=== PATIENT | female | born 1955 | race Caucasian/White ===

== ENCOUNTER 2021-06-19 15:41 | Outpatient (REF) | payer OTHER, SELFPAY ==
--- NOTE | ~2021-06-19 | MM_ITS ---
EXAMINATION: MM SCREENING DIGITAL BREAST TOMOSYNTHESIS, BILATERAL CLINICAL INFORMATION: Screening. Asymptomatic. The lifetime risk of breast cancer based on the Tyrer-Cuzick Model is 5%. COMPARISON: Mammography: 03/06/2020, 10/05/2018, 09/13/2017 TECHNIQUE: Digital breast tomosynthesis is performed in both the craniocaudal and mediolateral oblique views along with computer-aided detection (CAD). Synthesized 2D images are generated from the tomosynthesis. FINDINGS: There are scattered areas of fibroglandular density (ACR BI-RADS breast composition Category b). Parenchymal pattern is similar to prior studies. There is no developing density or interval mass or architectural abnormality. Grouped benign coarse calcifications posterior 3:00 left breast consistent with degenerating fibroadenoma again noted. There is a dermal lesion again seen overlying the posterior upper outer left breast, and dermal lesion overlying right axilla on MLO view. No significant changes. MM/MM tomosynthesis screening BI IMPRESSION: No mammographic evidence of malignancy. ASSESSMENT: BI-RADS 2: Benign RECOMMENDATION: Routine annual mammography screening. This patient's information was entered into a reminder system with a target due date for their next mammogram.
== END 2021-06-19 15:42 | disposition home or self-care (01) ==
LOC: HO.MAMMO 15:41
PROVIDERS: Visit Provider Nurse Practitioner
DX: Z12.31 Encounter for screening mammogram for malignant neoplasm of breast (principal)
CPT/HCPCS: 77063; 77067

== ENCOUNTER 2022-07-02 15:41 | Outpatient (REF) | payer OTHER, SELFPAY ==
--- NOTE | ~2022-07-02 | MM_ITS ---
EXAMINATION: MM SCREENING DIGITAL BREAST TOMOSYNTHESIS, BILATERAL CLINICAL INFORMATION: Screening. Asymptomatic. The lifetime risk of breast cancer based on the Tyrer-Cuzick Model is 4.6%. COMPARISON: Mammography: June 19, 2021 and studies dating back to July 15, 2015 TECHNIQUE: Digital breast tomosynthesis is performed in both the craniocaudal and mediolateral oblique views along with computer-aided detection (CAD). Synthesized 2D images are generated from the tomosynthesis. FINDINGS: There are scattered areas of fibroglandular density (ACR BI-RADS breast composition Category b). There are no new significant masses, abnormal calcifications, or other abnormalities. MM/MM tomosynthesis screening BI IMPRESSION: No significant changes from prior exam. ASSESSMENT: BI-RADS 1: Negative RECOMMENDATION: Routine annual mammography screening. This patient's information was entered into a reminder system with a target due date for their next mammogram.
== END 2022-07-02 15:42 | disposition home or self-care (01) ==
LOC: HO.MAMMO 15:41
PROVIDERS: Visit Provider Family Medicine
DX: Z12.31 Encounter for screening mammogram for malignant neoplasm of breast (principal)
CPT/HCPCS: 77063; 77067

== ENCOUNTER 2023-01-08 09:35 | Outpatient (REF) | payer OTHER, SELFPAY ==
--- NOTE | ~2023-01-08 | MM_ITS ---
EXAMINATION: BONE DENSITOMETRY CLINICAL INDICATION: Menopause. COMPARISON: This is the patient's baseline examination. TECHNIQUE: Using a SoundOut DXA System (software version: 13.1) manufactured by [employer], dual-energy x-ray absorptiometry was performed of the lumbar spine and right hip. The images are of good technical quality. Summary results are attached. FINDINGS: AP SPINE L1-L4: BMD 0.917 g/cm2, Z-score -0.4, T-score -2.2, osteopenia. RIGHT FEMUR, NECK: BMD 0.712 g/cm2, Z-score -0.7, T-score -2.3, osteopenia. RIGHT FEMUR, TOTAL: BMD 0.765 g/cm2, Z-score -0.5, T-score -1.9, osteopenia. IDENTIFIED RISK FACTORS: Early menopause, height loss, history of fracture (adult), osteoporosis, secondary osteoporosis. HISTORY OF FRACTURE: Wrist. MEDICATIONS: Calcium or multivitamin. Vitamin D, bisphosphonate. MM/XR DEXA axial skeleton IMPRESSION: 1. DIAGNOSIS: Osteopenia based on the lowest T-score value of -2.3 in the femoral neck applying World Health Organization criteria. 2. 10-YEAR FRACTURE RISK PREDICTION, FRAX: Not performed in this patient on estrogen or bone building treatments. 3. Treatment Recommendations: NOF guidelines recommend consideration for treatment in postmenopausal women and men age 50 and older presenting with the following: -A hip or vertebral (clinical or morphometric) fracture. -T-score less than or equal to -2.5 at the femoral neck or spine after appropriate evaluation to exclude secondary causes. -Low bone mass at the hip or spine and a 10-year fracture probability by FRAX of greater than or equal to 3% for hip fracture or greater than or equal to 20% for major osteoporotic fracture based on the [place] adapted WHO algorithm. 4. Other Recommendations: All treatment decisions require clinical judgment and consideration of individual patient factors, including patient preferences, comorbidities, previous drug use, risk factors not captured in the FRAX model (e.g. frailty, falls, vitamin D deficiency, increased bone turnover, interval significant decline in bone density) and possible under or overestimation of fracture risk by FRAX. Additional medical evaluation for secondary cause of low bone mineral density may be appropriate. FUTURE SCAN RECOMMENDATION: People with diagnosed cases of osteoporosis or at high risk for fracture should have regular bone mineral density tests. For patients eligible for Medicare, routine testing is allowed once every 2 years. The testing frequency can be increased to one year for patients who have rapidly progressing disease, those who are receiving or discontinuing medical therapy to restore bone mass, or have additional risk factors.
== END 2023-01-08 09:36 | disposition home or self-care (01) ==
LOC: HO.MAMMO 09:35
PROVIDERS: PCP Nurse Practitioner; Visit Provider Nurse Practitioner
DX: Z13.820 Encounter for screening for osteoporosis (principal); Z78.0 Asymptomatic menopausal state
CPT/HCPCS: 77080

== ENCOUNTER 2023-04-19 15:06 | Observation (INO) | payer OTHER, MEDICARE, SELFPAY ==
[2023-04-19] VITALS (7 sets, daily range): BP systolic 115–208; BP diastolic 59–93; PULSE 50–153; RESP 18–22; TEMP 36.5–36.9; O2SAT 99–100; BMI 22.2
--- NOTE | 2023-04-19 | ECG_ITS ---
Test Reason : Dysrhytmia Blood Pressure : / mmHG Vent. Rate : 153 BPM Atrial Rate : 156 BPM P-R Int : 000 ms QRS Dur : 086 ms QT Int : 320 ms P-R-T Axes : 000 -20 -78 degrees QTc Int : 510 ms Undetermined rhythm Lateral infarct , age undetermined Inferior-posterior infarct , age undetermined Abnormal ECG When compared with ECG of 19-APR-2023 15:12, Significant changes have occurred Referred By: Tania Cannon Electronically Signed By:LITZY NUNEZ
--- NOTE | 2023-04-19 15:07 | ECG_ITS ---
Test Reason : AFIB Blood Pressure : / mmHG Vent. Rate : 072 BPM Atrial Rate : 072 BPM P-R Int : 234 ms QRS Dur : 092 ms QT Int : 408 ms P-R-T Axes : 087 -10 069 degrees QTc Int : 446 ms Sinus rhythm with 1st degree A-V block Nonspecific ST and T wave abnormality Abnormal ECG When compared with ECG of 05-MAR-2019 12:19, [place] interval has increased Referred By: Generic ED Physician Electronically Signed By:LITZY NUNEZ
--- NOTE | 2023-04-19 15:38 | ED_ITS ---
HPI - General Adult General Chief complaint: Arrhythmia/Palpitations Stated complaint: a fib Time Seen by Provider: 04/19/23 20:53 Source: patient Mode of arrival: ambulatory Limitations: no limitations History of Present Illness HPI narrative: Patient comes to the emergency room complaining of palpitations. Patient states that she has an extensive history of atrial fibrillation and failed ablation x3 and multiple treatments including beta-blockers. Patient is currently on flecainide. Patient states that over last 2-3 weeks, she has gradually noticed that her palpitations have become more frequent. The reason she came today is because she had more episodes than usual and lasted longer than usual. Patient complaining of palpitations, no chest pain or shortness of breath. Patient states that she is very frustrated because she has this episodes at night, she has not been able to sleep. Any time that she gets up and starts walking now she has palpitations. Patient states that she usually takes flecainide 50 mg twice a day. Because she was frustrated with the symptoms, patient decided 2 days ago to increase her flecainide 100 mg b.i.d. patient states that despite increasing her dose of flecainide, she is still having symptoms (palpitations intensity and frequency) which actually got worse. Related Data Allergies Allergy/AdvReac Type Severity Reaction Status Date / Time dofetilide [From TIKOSYN] Allergy Unknown IRREGULAR Verified 04/19/23 15:37 HEART RATE lisinopril [LISINOPRIL] Allergy Unknown SWELLING Verified 04/19/23 15:37 penicillin G Allergy Unknown RESPIRATORY Unverified 04/04/20 16:02 DISTRESS penicillin V Allergy Unknown Unknown Verified 04/19/23 15:37 Penicillin Allergy Unknown Unknown Uncoded 04/19/23 15:37 Tikosyn Allergy Unknown Unknown Uncoded 04/19/23 15:37 Review of Systems 2 Review of Systems: Constitutional : No Weight loss, No Fever, No Chills, No Night Sweats, No Fatigue, No Malaise ENT/Mouth : No Hearing loss, No Ear Pain, No Nasal Congestion, No Sinus Pain, No Hoarseness, No sore throat, No Rhinorrhea, No Swallowing Difficulty Eyes: No Eye Pain, No Swelling, No Redness, No Foreign Body, No Discharge, No Vision Changes Cardiovascular : No Chest Pain, No SOB, No Dyspnea on Exertion, No Orthopnea, No Edema, complaining of frequent and more intense Palpitations Respiratory : No Cough, No Sputum, No Wheezing, No Smoke Exposure, No Dyspnea Gastrointestinal : No Nausea, No Vomiting, No Diarrhea, No Constipation, No abdominal Pain, No Hematochezia, No Melena Genitourinary : no irregular bleeding, No Dysuria, No Urinary Frequency, No Hematuria, No Urinary Incontinence, No Urgency, No Flank Pain, No Urinary Flow Changes, No Hesitancy Musculoskeletal : No joint pain, No Myalgias, No Joint Swelling Skin : No Skin Lesions, No rash Neuro : No Weakness, No Numbness, No Paresthesias, No Loss of Consciousness, No Dizziness, No Headache Psych : No Anxiety/Panic, No Depression, No SI/HI/AH/VH, No Social Issues, Heme/Lymph: No Bruising, No Bleeding,No Lymphadenopathy Endocrine : No Polyuria, No Polydipsia, No Temperature Intolerance [facility] Past Medical History Medical History (Updated 04/19/23 @ 23:42 by Tania Cannon MD) Hypothyroidism Atrial fibrillation Surgical History (Updated 04/19/23 @ 23:33 by Tania Cannon MD) History of cardiac radiofrequency ablation Social History Social History Alcohol intake: former Smoked in Last 30 Days: No Use of substances other than those prescribed or required for medical reasons: No Advance Directives: No Advance Directives Information Provided: No Physical Exam ED Vital Signs: Vital Signs - 24 hr 04/19/23 15:38 04/19/23 20:35 04/19/23 20:39 Temperature 97.7 F Pulse Rate 65 153 H 78 Respiratory Rate 18 18 Blood Pressure 191/62 H 208/78 H Pulse Oximetry 99 100 Oxygen Delivery Method Room Air Room Air 04/19/23 21:03 04/19/23 21:07 04/19/23 22:30 Temperature Pulse Rate 57 56 50 Respiratory Rate 18 18 18 Blood Pressure 131/59 L 115/93 H 143/67 H Pulse Oximetry 100 100 99 Oxygen Delivery Method Room Air Room Air Room Air BMI result Body Mass Index 22.2 Const Other: Appearance: Alert. Oriented X3. No acute distress. Eyes: Pupils equal, round and reactive to light. ENT: Pharynx normal. Neck: Normal inspection. Neck supple. No lymph nodes noted. No crepitus CVS: Heart rate regularly regular, heart rate between 150 and 160, Pulses normal. Normal S1 and S2 Respiratory: No respiratory distress. Breath sounds normal. No Wheezing. No rales Abdomen: Soft and nontender. No rigidity. No distention. Skin: Skin warm and dry. Normal skin color. Normal skin turgor. Extremities: No lower extremity edema. No Lacerations. No Rash Neuro: Oriented X 3. No motor deficit. No sensory deficit. Moving all extremities. No slurred speech. CN 2 through 12 grossly intact Psych: calm, cooperative, normal affect Course Course Course Narrative: This is an RME: Additional HPI, ROS, PE not included below will be deferred to primary provider. This is a 71-[id number]-[id number]-female, hx of a fib on eliquis, presenting to the ER with complaints of heart palpitations and dizziness x 4 days. Reporting anxious and hot/cold flashes. Currently a patient of [facility] - seen by Dr. Prince last wednesday. Pt states that she is also on Flecinide 50mg BID, states that she doubled her dosage to 100mg BID without full recommendations from her vegetable scullion - has not noticed any improvements. Plan: Labs, EKG Elevated troponin at 17.1 Repeat ordered from triage. 20:17 - pt brought back to main ER for further evaluation. Medications Administered Discontinued Medications Generic Name Dose Route Start Last Admin Trade Name Freq PRN Reason Stop Dose Admin Diltiazem HCl 20 mg 04/19/23 20:53 04/19/23 20:59 Diltiazem Hcl 50 Mg/10 Ml Vial IVPUSH 04/19/23 20:54 20 mg STAT STA Administration Medical Decision Making Medical Decision Making [facility] Narrative: -my interpretation of labs, normal hematology and chemistry, troponin slightly bumped at 17.1 and 22.7. Patient has no chest pain. -my interpretation of EKG 1: Atrial fibrillation with RVR, heart rate 153, QTC 510, no concern for STEMI -my interpretation of EKG 2: Sinus rhythm, heart rate 70, no ST segment depression or elevation, T-wave inversion in lead V1 V2, frequent PVCs -patient was given 20 mg of IV Cardizem, initial blood pressure 191/62, heart rate in the 150s to 160s. Patient's blood pressure improved to 128/76, heart rate between 50-65. Patient was ambulated around the emergency room, heart rate stayed between 50 and 60. -patient states she feels well. Patient is requesting to have her cardiac care transfer to [facility]. I discussed the patient with Dr. Bruce, who will see the patient in the morning. At this time, no more flecainide, patient to be given. -I discussed with Dr. Bruce admitting the patient versus sending her home. Patient id way needs very close follow-up. I discussed the options with the patient. Patient is concerned about all the symptoms she has been having lately, especially at night, increasing her flecainide without telling her vegetable scullion, starting Cardizem. Patient being admitted. -patient will have Cardiology consult in the morning. Patient discussed with Dr. Rubin Differential Diagnosis Differential Diagnoses: The differential diagnosis associated with the presentation includes (Atrial fibrillation, atrial flutter, SVT) Admission/Observation Consideration of admission/observation: Escalation of care including admission/observation considered Consult Healthcare Provider Management of the patient was discussed with: Hospitalist and Form Layer Lab Data MDM Lab Attestation statement: I reviewed the patient's lab results. 04/19/23 16:06 04/19/23 16:06 Labs: Lab Results 04/19/23 04/19/23 Range/Units 16:06 19:47 WBC 6.6 (4.8-10.8) X10*3/uL RBC 4.73 (4.20-5.50) X10*6/uL Hgb 15.2 (12.0-16.0) g/dl Hct 45.4 (37.0-47.0) % MCV 96.0 (80.0-98.0) fL MCH 32.1 (27.0-33.0) pg MCHC 33.5 (31.0-35.0) g/dl RDW 12.7 (11.0-16.0) % Plt Count 321 (160-400) X10*3/uL MPV 10.2 (9.4-12.3) fL Immature Gran % (Auto) 0.3 (0.0-0.4) % Neut % (Auto) 58.8 (45-73) % Lymph % (Auto) 26.3 (20-40) % Parmer % (Auto) 10.8 (2-11) % Eos % (Auto) 3.3 (0-4) % Baso % (Auto) 0.5 (0-2) % Lymph # (Auto) 1.7 (1.2-4.9) X10*3/uL Parmer # (Auto) 0.7 (0.1-1.2) X10*3/uL Eos # (Auto) 0.2 (0.0-0.4) X10*3/uL Baso # (Auto) 0.0 (0.0-0.2) X10*3/uL Abs Immat Gran (auto) 0.02 (0.00-0.03) X10*3/uL Absolute Neuts (auto) 3.9 (2.0-8.3) x10*3/uL Absolute Nucleated RBC 0.000 (0.0-0.012) X10*3/uL Nucleated RBC % (auto) 0.0 (0.0-0.2) /100WBC PT 13.7 H (11.1-13.3) SEC INR 1.1 (0.9-1.1) APTT 42.1 H (26.0-36.4) SEC Sodium 140 (135-145) mmol/L Potassium 4.3 (3.3-5.1) mmol/L Chloride 106 (96-108) mmol/L Carbon Dioxide 25 (22-29) mmol/L Anion Gap 13 (12-20) BUN 15 (9-16) mg/dL Creatinine 0.83 (0.5-1.4) mg/dL Estim Creat Clear Calc 58.3 Estimated GFR > 60 Random Glucose 91 (60-115) mg/dL Calcium 10.2 (8.4-10.2) mg/dL Magnesium 2.3 (1.6-2.6) mg/dL Total Bilirubin 0.4 (0.0-1.0) mg/dL Direct Bilirubin 0.1 (0.0-0.5) mg/dL AST 18 (5-31) U/L ALT 11 (0-31) U/L Alkaline Phosphatase 74 (39-117) U/L Troponin I High Sens 17.1 H 22.7 H (<3.5-17.0) ng/L Total Protein 8.3 H (6.5-8.0) g/dL Albumin 4.7 (3.5-5.0) g/dL TSH 2.59 (0.32-4.0) uIU/mL Independent Interpretation I performed an independent interpretation of an: EKG Independent Historian Clinical information obtained from an independent historian. History obtained from or confirmed by: Spouse (At bedside) Critical Care Time Critical Care Time Critical Care Time: Yes Total Critical Care Time: 60 Attestation: I have personally provided critical care time. Time includes review of lab data, radiology results, discussion with consultants, and monitoring for potential decompensation. Intervention performed as documented. Discharge Plan Discharge Clinical Impression: Atrial fibrillation with rapid ventricular response Patient Disposition: Admitted As Inpatient
[2023-04-19 16:11] LABS: MANUAL DIFF FLAG NO
[2023-04-19 16:17] LABS: Basophils Percent Auto 0.5 % (0-2); Eosinophils Absolute Auto 0.2 X10*3/uL (0.0-0.4); Eosinophils Percent Auto 3.3 % (0-4); Hematocrit 45.4 % (37.0-47.0); Hemoglobin 15.2 g/dl (12.0-16.0); Imm Gran Abs Auto 0.02 X10*3/uL (0.00-0.03); Imm Gran Pct Auto 0.3 % (0.0-0.4); Lymphocytes Absolute Auto 1.7 X10*3/uL (1.2-4.9); Lymphocytes Percent Auto 26.3 % (20-40); Mean Corpuscular HGB Conc 33.5 g/dl (31.0-35.0); Mean Corpuscular Hemoglobin 32.1 pg (27.0-33.0); Mean Platelet Volume 10.2 fL (9.4-12.3); Monocytes Absolute Auto 0.7 X10*3/uL (0.1-1.2); Monocytes Percent Auto 10.8 % (2-11); Neutrophils Absolute Auto 3.9 x10*3/uL (2.0-8.3); Neutrophils Percent Auto 58.8 % (45-73); Platelet Count 321 X10*3/uL (160-400); Red Blood Count 4.73 X10*6/uL (4.20-5.50); Red Cell Distribution Width 12.7 % (11.0-16.0); White Blood Count 6.6 X10*3/uL (4.8-10.8)
[2023-04-19 16:19] LABS: INTERNATIONAL NORM RATIO 1.1 (0.9-1.1); Prothrombin Time 13.7 SEC (11.1-13.3)
[2023-04-19 16:22] LABS: Partial Thromboplastin Time 42.1 SEC (26.0-36.4)
[2023-04-19 16:36] LABS: Alanine Aminotransferase 11 U/L (0-31); Albumin Level 4.7 g/dL (3.5-5.0); Alkaline Phosphatase 74 U/L (39-117); Anion Gap 13 (12-20); Aspartate Amino Transferase 18 U/L (5-31); Bilirubin Direct 0.1 mg/dL (0.0-0.5); Bilirubin Total 0.4 mg/dL (0.0-1.0); Blood Urea Nitrogen 15 mg/dL (9-16); Calcium 10.2 mg/dL (8.4-10.2); Carbon Dioxide 25 mmol/L (22-29); Chloride 106 mmol/L (96-108); Creatinine Clr Calc Pharmacy 58.3; Estimated Glomerular Filt Rate > 60; Glucose Random 91 mg/dL (60-115); Magnesium 2.3 mg/dL (1.6-2.6); Potassium 4.3 mmol/L (3.3-5.1); Sodium 140 mmol/L (135-145); Total Protein 8.3 g/dL (6.5-8.0)
[2023-04-19 16:38] LABS: Troponin-I High Sensitivity 17.1 ng/L (<3.5-17.0)
[2023-04-19 16:51] LABS: TSH reflex Free T4 2.59 uIU/mL (0.32-4.0)
[2023-04-19 20:14] LABS: Troponin-I High Sensitivity 22.7 ng/L (<3.5-17.0)
[2023-04-19] MEDS: dilTIAZem HCL 50 MG/10 ML VIAL 20 MG IVPUSH (20:59)
--- NOTE | 2023-04-19 21:03 | ECG_ITS ---
Test Reason : DYSRHYTHMIA Blood Pressure : / mmHG Vent. Rate : 070 BPM Atrial Rate : 060 BPM P-R Int : 160 ms QRS Dur : 084 ms QT Int : 424 ms P-R-T Axes : 075 036 083 degrees QTc Int : 457 ms Sinus rhythm with Premature supraventricular complexes and with occasional Premature ventricular complexes Possible Lateral infarct (cited on or before 19-APR-2023) ST & T wave abnormality, consider anterior ischemia Abnormal ECG When compared with ECG of 19-APR-2023 20:49, Previous ECG has undetermined rhythm, needs review Criteria for Inferior-posterior infarct are no longer Present Serial changes of evolving Lateral infarct Present Referred By: Jb Rubin Electronically Signed By:LITZY NUNEZ
--- NOTE | 2023-04-19 21:04 | PC.NURSE ---
dr. sanchez at bedside discussing pt care.
--- NOTE | 2023-04-19 22:29 | PC.NURSE ---
Trial ambulation with pt. Pt demonstrated steady gait, no acute distress. HR remained 48-62 during ambulation, pt asymptomatic. Returned to stretcher and VS obtained. notified.
--- NOTE | 2023-04-19 23:32 | PM.IMHP ---
History of Present Illness Date of Service: 04/19/23 Chief Complaint: Palpitations, dizziness A 67 years old lady with PMH of Afib on Eliquis, Hypothyroidism, HTN among others who presents to the hospital with dizziness and palpitations with HR in 150s. Reprting feeling anxious and SOB with associated weakness. denies any chest pain, LOC, blurred vision, N\V\D , change in bowel habit or urinary symptoms. She has been having symptoms in\out Afib for almost a month. 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 Heart rate controlled in ED with IV Cardizem. Admitted for observation and cardiology eval in the morning. Review of Systems Review of Systems: No fever, chills but reports weakness No chest pain but having palpitation exertional shortness of breath or coughing No abdominal pain, nausea or vomiting No urinary symptoms PMFSH Medical History Hypothyroidism Atrial fibrillation Surgical History History of cardiac radiofrequency ablation Social History Alcohol intake: former Smoked in Last 30 Days: No Use of substances other than those prescribed or required for medical reasons: No Advance Directives: No Advance Directives Information Provided: No Meds Allergies Allergy/AdvReac Type Severity Reaction Status Date / Time dofetilide [From TIKOSYN] Allergy Unknown IRREGULAR Verified 04/19/23 15:37 HEART RATE lisinopril [LISINOPRIL] Allergy Unknown SWELLING Verified 04/19/23 15:37 penicillin G Allergy Unknown RESPIRATORY Unverified 04/04/20 16:02 DISTRESS penicillin V Allergy Unknown Unknown Verified 04/19/23 15:37 Penicillin Allergy Unknown Unknown Uncoded 04/19/23 15:37 Tikosyn Allergy Unknown Unknown Uncoded 04/19/23 15:37 Home Medications Medication Instructions Recorded Confirmed Last Taken Type alendronate 70 mg tablet 70 mg PO QWEEK 04/20/23 04/20/23 04/14/23 History amlodipine 2.5 mg tablet 2.5 mg PO DAILY 04/20/23 04/20/23 Unknown History amlodipine 5 mg tablet 5 mg PO DAILY 04/20/23 04/20/23 Unknown History apixaban 5 mg tablet (Eliquis) 5 mg PO BID 04/20/23 04/20/23 Unknown History doxepin 10 mg capsule 10 mg PO BEDTIME 04/20/23 04/20/23 Unknown History gabapentin 100 mg capsule 100 mg PO TID 04/20/23 04/20/23 Unknown History hydrochlorothiazide 25 mg tablet 25 mg PO DAILY 04/20/23 04/20/23 Unknown History levothyroxine 125 mcg tablet 125 mcg PO DAILY 04/20/23 04/20/23 Unknown History spironolactone 25 mg tablet 25 mg PO DAILY 04/20/23 04/20/23 Unknown History Physical Exam Vital Signs and Narrative: Vital Signs: Last Vital Signs Temp 97.7 F 04/19/23 15:38 Pulse 50 04/19/23 22:30 Resp 18 04/19/23 22:30 BP 143/67 H 04/19/23 22:30 Pulse Ox 99 04/19/23 22:30 O2 Del Method Room Air 04/19/23 22:30 BMI result Body Mass Index 22.2 Const: Other: Constitutional : Awake, interactive, not in distress Neck : Normal inspection, Supple Cardiovascular : regular, no JVP, no lower extremity edema Respiratory : good bilateral air entry, no crackles Gastrointestinal: soft, lax, Normal bowel sounds, Non tender Skin : Warm, Dry Neurological : Alert & oriented x3, No focal deficit Results Labs 04/19/23 16:06 04/19/23 16:06 Labs: Laboratory Results - last 24 hr 04/19/23 16:06 MCV 96.0 MCH 32.1 MCHC 33.5 RDW 12.7 Plt Count 321 MPV 10.2 Immature Gran % (Auto) 0.3 Neut % (Auto) 58.8 Lymph % (Auto) 26.3 [place] % (Auto) 10.8 Eos % (Auto) 3.3 Baso % (Auto) 0.5 Lymph # (Auto) 1.7 [place] # (Auto) 0.7 Eos # (Auto) 0.2 Baso # (Auto) 0.0 Abs Immat Gran (auto) 0.02 Absolute Neuts (auto) 3.9 Absolute Nucleated RBC 0.000 Nucleated RBC % (auto) 0.0 PT 13.7 H INR 1.1 APTT 42.1 H Anion Gap 13 Estim Creat Clear Calc 58.3 Estimated GFR > 60 Random Glucose 91 Calcium 10.2 Magnesium 2.3 Total Bilirubin 0.4 Direct Bilirubin 0.1 AST 18 ALT 11 Alkaline Phosphatase 74 Total Protein 8.3 H Albumin 4.7 TSH 2.59 Assessment and Plan (1) Atrial fibrillation with rapid ventricular response: Status: Acute Plan A 67 years old lady with PMH of Afib on Eliquis, Hypothyroidism, HTN among others who presents to the hospital with dizziness and palpitations with HR in 150s. Afib w RvR converted back to sinus with IV Cardizem, rate down to 50-60s Patient doesnt want to continue with Flecanide Keep on Tele PRN Cardizem cardiology eval for medication advice , rec starting Cardizem 120CD Hypothyroidism Continue Levothyroxine normal TSH Pending Med rec DVT PPx Eliquis Time Spent With Patient Time: Total time managing care of this patient today ____ minutes. Quality Stroke Does the patient have a stroke diagnosis?: No VTE Prior VTE?: No VTE Risk Level:: Medical - moderate - high VTE Device Contraindication: Treatment Not Indicated VTE Drug Contraindication: N/A - Med Ordered
[2023-04-20] MEDS: 0.9 % Sodium Chloride Flush 3 ML SYRINGE IVFLUSH ×2 (00:19→09:04)
[2023-04-20 01:03] VITALS: BP 148/64; PULSE 136; RESP 18; O2SAT 100
[2023-04-20] MEDS: dilTIAZem HCL 30 MG TABLET PO ×2 (01:03→02:50)
--- NOTE | 2023-04-20 01:04 | PC.NURSE ---
pt endorsing two episodes of chest palpitations. pt heart rate 135, and then goes back down to 56-68 bpm. pt denies chest pain. provider aware at this time.
[2023-04-20 01:18] VITALS: BP 140/72; PULSE 54; RESP 16; O2SAT 99
--- NOTE | 2023-04-20 02:35 | PC.NURSE ---
pt reporting increase palpitations every 5 minutes, reports feeling restless from the feeling and unable to sleep. Dr. Iain lowery.
[2023-04-20 02:49] VITALS: BP 148/55; PULSE 64; RESP 18; O2SAT 99
[2023-04-20] MEDS: LORazepam 0.5 MG TABLET 0.25 MG PO (02:50)
[2023-04-20 02:58] VITALS: BP 126/59; PULSE 53; RESP 18; O2SAT 100
--- NOTE | 2023-04-20 03:01 | PC.NURSE ---
attempted to give report to [facility]. Nurse on [facility] will call this RN back.
--- NOTE | 2023-04-20 03:42 | PC.NURSE ---
report given to [facility].
[2023-04-20 04:09] VITALS: BMI 22.0
[2023-04-20] MEDS: Levothyroxine Sodium 125 MCG TABLET PO (05:09)
[2023-04-20 07:29] VITALS: BP 122/58; PULSE 52; RESP 20; TEMP 36.2; O2SAT 100
--- NOTE | 2023-04-20 08:29 | PHA.MEDREC ---
Pharmacy Consult ? Medication Reconciliation Pharmacy has completed the medication reconciliation. Pharmacy was reviewing med rec done by nursing overnight and noticed some discrepancies against pharmacy claim history. RN states she spoke to patient as source so I decided to clarify with patient thinking she takes medications differently than prescribed. Patient was able to list medications without being lead an clarified that RN had incorrectly timed one of the 2 amlodipine doses she takes, put her gabapentin as tid instead of bedtime, and left out flecainide even though patient has been consistently filling this medication as per her claim history. Patient home med list updated and Dr Dey made aware of changes.
--- NOTE | 2023-04-20 08:34 | MHC.CM.PN ---
CM met with Patient at bedside and addressed SHAFFER with her, providing Patient with the original and placing a copy on the chart. 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 Home/self care is the goal and CM has initiated and will follow for dc planning. PCP is Dr. Kathia Brennan.
[2023-04-20] MEDS: dilTIAZem HCL CD 120 MG CAP.ER.DEG PO (09:04)
[2023-04-20] MEDS: Apixaban 5 MG TABLET PO (09:04)
--- NOTE | 2023-04-20 09:31 | PM.CNCAR ---
History of Present Illness History of Present Illness Date of Service: 04/20/23 Chief complaint: Afib w RvR Narrative: This is a cardiology consultation regarding atrial fibrillation. Patient currently goes to [facility] and she would like to switch. She states that she has had atrial fibrillation for more than 10 years. Has had multiple ablation, about 3 but this was also more than 10 years ago. Nothing recently. She states that she was free of atrial fibrillation for a long time and has been on flecainide. More recently in the last few months, she has been having recurrent episodes of palpitations from atrial fibrillation. She was on flecainide 50 mg b.i.d. per for the last few days she increased to 100 mg b.i.d. by herself. She was also on metoprolol in the past but she also has resting sinus bradycardia and hence apparently that was stopped a while back. Otherwise because of palpitations she presented to the ER. She got diltiazem IV and then converted to sinus rhythm and that she was admitted for further care. Currently, she feels fine. She does not have any chest pain or any other cardiac symptoms. No history of any coronary artery disease or myocardial infarction or cardiomyopathy. No history of alcohol excess. Review of Systems Review of Systems: Yes all other systems are reviewed and are negative Constitutional: Constitutional: Reports as per HPI and Reports no additional constitutional complaints Eyes: Eyes: Reports as per HPI and Denies no additional eye complaints ENT: Denies system reviewed and no additional complaints, except as documented and Reports as per HPI Cardiovascular: Cardiovascular: Reports as per HPI, Reports no additional cardiovascular complaints, Denies acrocyanosis, Denies cool extremities, Denies chest pain, Denies leg edema, Denies lightheadedness, Reports palpitations and Denies dyspnea Respiratory: Respiratory: Reports as per HPI, Denies no additional respiratory complaints and Denies dyspnea Gastrointestinal: Gastrointestinal: Reports as per HPI and Denies no additional gastrointestinal complaints Genitourinary: Genitourinary: Reports as per HPI Musculoskeletal: Musculoskeletal: Reports no additional musculoskeletal complaints and Reports as per HPI Integumentary/Breasts: Skin/Breast: Reports system reviewed and no additional complaints, except as docu Neurologic: Reports system reviewed and no additional complaints, except as documented and Reports as per HPI Psychiatric: Psychiatric: Reports no additional psychiatric complaints and Reports as per HPI Endocrine: Endocrine: Reports no additional endocrine complaints, Reports as per HPI and Reports palpitations Hematologic/Lymphatic: Hematologic/Lymphatic: Reports no additional hematologic/lymphatic complaints and Reports as per HPI Allergic/Immunologic: Allergic/Immunologic: Reports no additional allergic/immunologic complaints and Reports as per HPI PMFSH Past Medical History Medical History Hypothyroidism Atrial fibrillation Family History Pertinent family history: No significant family history of cardiovascular or other major issues per patient. Surgical History Surgical History History of cardiac radiofrequency ablation Social History Social History Household Members: Significant Other Housing: House Do you presently have visiting nurse or other home services: No Alcohol intake: former Patient Tobacco Use Status: Never used Tobacco service: No Meds Allergies Allergy/AdvReac Type Severity Reaction Status Date / Time dofetilide [From TIKOSYN] Allergy Unknown IRREGULAR Verified 04/19/23 15:37 HEART RATE lisinopril [LISINOPRIL] Allergy Unknown SWELLING Verified 04/19/23 15:37 penicillin G Allergy Unknown RESPIRATORY Unverified 04/04/20 16:02 DISTRESS penicillin V Allergy Unknown Unknown Verified 04/19/23 15:37 Penicillin Allergy Unknown Unknown Uncoded 04/19/23 15:37 Tikosyn Allergy Unknown Unknown Uncoded 04/19/23 15:37 Active Medications: Current Medications Apixaban (Apixaban 5 Mg Tablet) 5 mg PO BID [facility] Last Admin: 04/20/23 09:04 Dose: 5 mg Diltiazem HCl (Diltiazem Hcl Cd 120 Mg Cap.Er.Deg) 120 mg PO DAILY [facility]; Protocol Last Admin: 04/20/23 09:04 Dose: 120 mg Levothyroxine Sodium (Levothyroxine Sodium 125 Mcg Tablet) 125 mcg PO DAILY@0600 [facility] Last Admin: 04/20/23 05:09 Dose: 125 mcg Sodium Chloride (0.9 % Sodium Chloride Flush 3 Ml Syringe) 3 ml IVFLUSH QSHIFT [facility] Last Admin: 04/20/23 09:04 Dose: 3 ml Home Medications Medication Instructions Recorded Confirmed Last Taken Type alendronate 70 mg tablet 70 mg PO WE 04/20/23 04/20/23 04/14/23 History amlodipine 2.5 mg tablet 2.5 mg PO BEDTIME 04/20/23 04/20/23 04/18/23 History amlodipine 5 mg tablet 5 mg PO DAILY 04/20/23 04/20/23 04/19/23 History apixaban 5 mg tablet (Eliquis) 5 mg PO BID 04/20/23 04/20/23 04/19/23 History doxepin 10 mg capsule 10 mg PO BEDTIME 04/20/23 04/20/23 04/18/23 History flecainide 50 mg tablet 50 mg PO BID 04/20/23 04/20/23 04/19/23 History gabapentin 100 mg capsule 300 mg PO BEDTIME 04/20/23 04/20/23 04/18/23 History hydrochlorothiazide 25 mg tablet 25 mg PO DAILY 04/20/23 04/20/23 04/19/23 History levothyroxine 125 mcg tablet 125 mcg PO DAILY@0600 04/20/23 04/20/23 04/19/23 History spironolactone 25 mg tablet 25 mg PO DAILY 04/20/23 04/20/23 04/19/23 History Physical Exam Vital Signs: Vital Signs: Last Vital Signs Temp 97.1 F 04/20/23 07:29 Pulse 52 04/20/23 07:29 Resp 20 04/20/23 07:29 BP 122/58 L 04/20/23 07:29 Pulse Ox 100 04/20/23 07:29 O2 Del Method Room Air 04/20/23 07:29 BMI result Body Mass Index 22.0 Const: General: comfortable and no acute distress Orientation/consciousness: patient oriented x3 HEENT: Other: Unremarkable Head: Yes normal to inspection Neck: Neck: Yes normal visual inspection Chest: Chest palpation & inspection: normal inspection of the chest Resp: Auscultation: clear to auscultation bilaterally Cardio: Palpation: normal PMI Heart sounds: S1 normal heart sound present, S2 normal heart sound present, no gallops, no murmurs and no rubs GI: Palpation (GI): Soft to palpation Back/Spine/Pelvis: Other: unremarkable Skin: General skin exam: no rashes or lesions noted Neuro: General: patient oriented x3 Extrem: General: Yes normal to inspection Psych: Mental Status: mental status grossly normal Objective Labs and Meds 04/19/23 16:06 04/19/23 16:06 Lab results: Laboratory Results - last 24 hr 04/19/23 04/19/23 16:06 19:47 WBC 6.6 RBC 4.73 Hgb 15.2 Hct 45.4 MCV 96.0 MCH 32.1 MCHC 33.5 RDW 12.7 Plt Count 321 MPV 10.2 Immature Gran % (Auto) 0.3 Neut % (Auto) 58.8 Lymph % (Auto) 26.3 [place] % (Auto) 10.8 Eos % (Auto) 3.3 Baso % (Auto) 0.5 Lymph # (Auto) 1.7 [place] # (Auto) 0.7 Eos # (Auto) 0.2 Baso # (Auto) 0.0 Abs Immat Gran (auto) 0.02 Absolute Neuts (auto) 3.9 Absolute Nucleated RBC 0.000 Nucleated RBC % (auto) 0.0 PT 13.7 H INR 1.1 APTT 42.1 H Sodium 140 Potassium 4.3 Chloride 106 Carbon Dioxide 25 Anion Gap 13 BUN 15 Creatinine 0.83 Estim Creat Clear Calc 58.3 Estimated GFR > 60 Random Glucose 91 Calcium 10.2 Magnesium 2.3 Total Bilirubin 0.4 Direct Bilirubin 0.1 AST 18 ALT 11 Alkaline Phosphatase 74 Troponin I High Sens 17.1 H 22.7 H Total Protein 8.3 H Albumin 4.7 TSH 2.59 ECG Interpretation: EKG is reviewed. While in sinus rhythm, rate 70/Min. PVCs. There is downsloping STs with T inversion in the anterior leads but other leads also shows some degree of ST sagging. While in atrial fibrillation, rate was 153/Min and the ST segments changes much more prominent. Assessment and Plan (1) Atrial fibrillation with rapid ventricular response: Status: Acute (2) Sinus bradycardia: Status: Acute Plan Recurrent atrial fibrillation rapid rate and history of multiple ablations. On telemetry, she has sinus bradycardia in the 50s. Clinically absolutely no symptoms. We can just keep her on flecainide 50 mg b.i.d. but add metoprolol back to her regimen at 25 mg b.i.d.. If she still gets recurrent arrhythmias, then possibly switched to Multaq or consider another ablation. Will need to get records from her prior senior genetic counselor as she would like to switch. May need coronary CTA to assess for any CAD if there is no ischemic workup in the past. Time Spent With Patient Time: Total time managing care of this patient today ____ minutes. Procedures Date of Service Date of Service: 04/20/23
--- NOTE | 2023-04-20 10:32 | MHC.CM.PN ---
Per ROUNDS discussion, Patient will be medically cleared for dc to home today, self care.
--- NOTE | 2023-04-20 11:14 | P.DS_ITS ---
DS: Providers Provider Date of Service: 04/20/23 Date of admission: 04/19/23 23:29 Primary care physician: Kathia Brennan NP Consults: 04/19/23 23:30 Consult to Cardiology Routine Consulting Provider: [facility] Reason for consultation: Afib w RvR, medication advice, for eval and rec. DS: Diagnosis Discharge Diagnosis (1) Atrial fibrillation with rapid ventricular response: Status: Acute (2) Sinus bradycardia: Status: Acute DS: Summary Hospital Course Hospital Course: History of presenting illness: Date of Service: 04/19/23 Chief Complaint: Palpitations, dizziness A 67 years old lady with PMH of Afib on Eliquis, Hypothyroidism, HTN among others who presents to the hospital with dizziness and palpitations with HR in 150s. Reprting feeling anxious and SOB with associated weakness. denies any chest pain, LOC, blurred vision, N\V\D , change in bowel habit or urinary symptoms. She has been having symptoms in\out Afib for almost a month. 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 Heart rate controlled in ED with IV Cardizem. Admitted for observation and cardiology eval in the morning. Hospital course: Atrial fibrillation with RVR 67 years old lady with PMH of Afib on Eliquis, status post multiple ablation done 10 years ago on flecainide, Hypothyroidism, HTN among others who presents to the hospital with dizziness and palpitations with HR in 150s. Patient treated in the emergency room with IV Cardizem and converted to sinus bradycardia patient admitted for close monitoring and further testing, patient seen by greenskeeper laborer since patient remains in sinus bradycardia he recommend to continue flecainide 50 mg twice daily and added metoprolol for better heart rate control, patient recently had an echocardiogram few weeks ago that was reported as normal to patient,today noted to have normal electrolytes and TSH and has been continued on all home medications, continue Eliquis. Time Spent with Patient Time attestation: Total time managing care of this patient today ____ minutes. Discharge coordination time: Greater than 30 minutes Quality: Safe Use of Opioids Does Pt have an Active Cancer Diagnosis on the Problem List?: No Quality: Stroke Does the patient have a stroke diagnosis?: No Physical Exam Vital Signs: Vital Signs: Last Vital Signs Temp 97.1 F 04/20/23 07:29 Pulse 52 04/20/23 07:29 Resp 20 04/20/23 07:29 BP 122/58 L 04/20/23 07:29 Pulse Ox 100 04/20/23 07:29 O2 Del Method Room Air 04/20/23 07:29 BMI result Body Mass Index 22.0 Const: Other: General awake alert x3, sitting comfortably in no acute distress. Neck supple no JVD. CVS regular rate rhythm, sinus bradycardia Respiratory lungs clear to auscultation, no respiratory distress, no wheeze, no rhonchi. Gastrointestinal abdomen soft, non tender, bowel sounds audible, no guarding , no rigidity. Extremities no edema. Neuro nonfocal , moving all 4 extremity, speech clear. Skin no rash Psych appropriate affect DS: Data Data Completed and Pending Labs on day of discharge: Laboratory Results - last 24 hr 04/19/23 04/19/23 16:06 19:47 WBC 6.6 RBC 4.73 Hgb 15.2 Hct 45.4 MCV 96.0 MCH 32.1 MCHC 33.5 RDW 12.7 Plt Count 321 MPV 10.2 Immature Gran % (Auto) 0.3 Neut % (Auto) 58.8 Lymph % (Auto) 26.3 [place] % (Auto) 10.8 Eos % (Auto) 3.3 Baso % (Auto) 0.5 Lymph # (Auto) 1.7 [place] # (Auto) 0.7 Eos # (Auto) 0.2 Baso # (Auto) 0.0 Abs Immat Gran (auto) 0.02 Absolute Neuts (auto) 3.9 Absolute Nucleated RBC 0.000 Nucleated RBC % (auto) 0.0 PT 13.7 H INR 1.1 APTT 42.1 H Sodium 140 Potassium 4.3 Chloride 106 Carbon Dioxide 25 Anion Gap 13 BUN 15 Creatinine 0.83 Estim Creat Clear Calc 58.3 Estimated GFR > 60 Random Glucose 91 Calcium 10.2 Magnesium 2.3 Total Bilirubin 0.4 Direct Bilirubin 0.1 AST 18 ALT 11 Alkaline Phosphatase 74 Troponin I High Sens 17.1 H 22.7 H Total Protein 8.3 H Albumin 4.7 TSH 2.59 Discharge Plan Discharge Patient Disposition: Home, Self-Care Referrals: Kathia Brennan NP [Primary Care Provider] - 1 Week Discharge Medications: New metoprolol tartrate 25 mg tablet 25 mg PO BID Qty: 60 0RF Continued alendronate 70 mg tablet 70 mg PO WE amlodipine 2.5 mg tablet 2.5 mg PO BEDTIME amlodipine 5 mg tablet 5 mg PO DAILY doxepin 10 mg capsule 10 mg PO BEDTIME spironolactone 25 mg tablet 25 mg PO DAILY levothyroxine 125 mcg tablet 125 mcg PO DAILY@0600 hydrochlorothiazide 25 mg tablet 25 mg PO DAILY gabapentin 100 mg capsule 300 mg PO BEDTIME Eliquis 5 mg tablet 5 mg PO BID flecainide 50 mg tablet 50 mg PO BID Discharge Orders: Discharge Order (Routine); Ordered 04/20/23 Ordered By: Ca Dey Diet: Low fat, low cholesterol Activity on Discharge: As tolerated Stand Alone Forms: Patient Portal Discharge page Care Plan Goals: Atrial fibrillation with rapid ventricular response resolved patient converted to sinus bradycardia Continue flecainide 50 mg 1 tablet twice daily, metoprolol 25 mg 1 tablet twice daily added Recommend to continue all home medication Health Concerns: Continue all home medications as before Plan of Treatment: Outpatient follow-up with greenskeeper laborer Dr. Bruce, call for appointment Assessment: As above
[2023-04-20 11:48] VITALS: BP 133/62; PULSE 53; RESP 18; TEMP 36.6; O2SAT 97
== END 2023-04-20 12:29 | disposition home or self-care (01) ==
LOC: HO.ED 23:42 → HO.EDOVER 04-20 00:18 → HO.IMC 04-20 01:59
PROVIDERS: Physician Assistant Medical; Admitting Provider Student in an Organized Health Care Education/Training Program; Emergency Provider Emergency Medicine; PCP Nurse Practitioner; Visit Provider Hospitalist
DX: I48.91 Unspecified atrial fibrillation (principal); R00.1 Bradycardia, unspecified; R00.2 Palpitations; R94.31 Abnormal electrocardiogram [ECG] [EKG]; I10 Essential (primary) hypertension; E03.9 Hypothyroidism, unspecified; R42 Dizziness and giddiness; Z79.01 Long term (current) use of anticoagulants
CPT/HCPCS: 36415; 80048; 80076; 83735; 84443; 84484; 85025; 85610; 85730; 93005; 96374; 99222; 99285

== ENCOUNTER → 2023-04-19 23:29 | Outpatient (BNV) | payer OTHER, SELFPAY | PROVIDERS: Admitting Provider Student in an Organized Health Care Education/Training Program; Emergency Provider Emergency Medicine; PCP Nurse Practitioner; Visit Provider Internal Medicine | DX: I48.91 Unspecified atrial fibrillation (principal); R00.1 Bradycardia, unspecified | CPT/HCPCS: 99223 ==

== ENCOUNTER → 2023-04-19 23:29 | Outpatient (BNV) | payer OTHER, SELFPAY | PROVIDERS: Admitting Provider Student in an Organized Health Care Education/Training Program; Emergency Provider Emergency Medicine; PCP Nurse Practitioner; Visit Provider Student in an Organized Health Care Education/Training Program | DX: I48.91 Unspecified atrial fibrillation (principal); R00.1 Bradycardia, unspecified | CPT/HCPCS: 99222; 99239 ==

== ENCOUNTER → 2023-04-23 14:03 | Outpatient (BNVA) | payer OTHER, SELFPAY | PROVIDERS: PCP Nurse Practitioner; Visit Provider Nurse Practitioner ==

== ENCOUNTER → 2023-04-27 14:59 | Outpatient (REF) | payer OTHER, SELFPAY ==
--- NOTE | 2023-04-27 15:01 | HM_ITS ---
* Total monitoring time about 3 days. * Underlying rhythm is sinus. Average ventricular rate 42/Min. Range 29 to 67/Min. About 80% the time, rate less than 60/Min. * Pauses noted. Longest 2.9 seconds during sleep hours. No significant daytime pauses. No significant heart blocks. * Rare PACs and PVCs with low burden. * No atrial fibrillation or flutter. * Palpitations in diary correlates with sinus bradycardia. MTDD
== END ==
LOC: HO.CARD 14:59
PROVIDERS: PCP Nurse Practitioner; Visit Provider Internal Medicine
DX: I48.91 Unspecified atrial fibrillation (principal)
CPT/HCPCS: 93242

== ENCOUNTER → 2023-04-27 15:01 | Outpatient (BNV) | payer OTHER, SELFPAY | PROVIDERS: PCP Nurse Practitioner; Visit Provider Internal Medicine | DX: I49.1 Atrial premature depolarization (principal) | CPT/HCPCS: 93244 ==

== ENCOUNTER 2023-05-17 15:14 | Outpatient (AMB) | payer OTHER, SELFPAY ==
--- NOTE | 2023-05-17 15:18 | A.OFFVIS_ITS ---
Intake Vital Signs 05/17/23 15:19 Height 5 ft 5 in Weight 138 lb 14.259 oz BMI 23.1 BP 134/80 Blood Pressure Location Lt brachial Position Sitting Pulse 49 L Intake Visit Reasons: follow up after testing Intake Note: follow up testing Financial Services Manager Required: No Accompanied by: Self / Same As Patient Allergies dofetilide [From TIKOSYN] Allergy (Unknown, Verified 05/17/23 15:20) IRREGULAR HEART RATE lisinopril [LISINOPRIL] Allergy (Unknown, Verified 05/17/23 15:20) SWELLING penicillin G Allergy (Unknown, Verified 05/17/23 15:20) RESPIRATORY DISTRESS penicillin V Allergy (Unknown, Verified 05/17/23 15:20) Unknown Penicillin Allergy (Unknown, Uncoded 05/17/23 15:20) Unknown Tikosyn Allergy (Unknown, Uncoded 05/17/23 15:20) Unknown Medication List - Last Reconciled 05/17/23 by Cedric Bruce MD alendronate 70 mg PO WE amlodipine 2.5 mg PO BEDTIME amlodipine 5 mg PO DAILY apixaban (Eliquis) 5 mg PO BID doxepin 10 mg PO BEDTIME flecainide 50 mg PO BID gabapentin 300 mg PO BEDTIME hydrochlorothiazide 25 mg PO DAILY levothyroxine 125 mcg PO DAILY@0600 metoprolol tartrate 12.5 mg PO BID metronidazole 500 mg PO BID spironolactone 25 mg PO DAILY HPI HPI Comments History of Present Illness Details Lupe is here for follow-up regarding atrial fibrillation. Previously seeing [facility] but would like to switch her care to us. She has a history of 3 atrial fibrillation ablation. Around 10 years ago. She was apparently free of atrial fibrillation for many years but more recently started having episodes of palpitations from recurrent atrial fibrillation. She was trying to self adjust the dose of metoprolol with some relief. Eventually, she did get admitted to [place] where she was in atrial fibrillation rapid rate. Then given IV Cardizem and converted to sinus rhythm. She was able to get discharged. Outpatient Holter following discharge shows significant sinus bradycardia but no recurrent atrial fibrillation. She is on a small dose of maintenance flecainide/metoprolol. Generally feeling okay. No other cardiac symptoms. Palpitations seem improved. [facility] Medical History (Updated 05/17/23 @ 15:41 by Cedric Bruce MD) Paroxysmal atrial fibrillation Hypothyroidism Atrial fibrillation Surgical History History of cardiac radiofrequency ablation Family History (Updated 05/17/23 @ 15:30 by Cedric Bruce MD) Father No problems noted. Mother No problems noted. Social History Household Members: Significant Other Housing: House Do you presently have visiting nurse or other home services: No Alcohol intake: former Patient Tobacco Use Status: Never used Tobacco service: No Review of Systems Const All systems reviewed & are unremarkable except as noted in HPI and below Reports as per HPI and Reports no additional complaints Eyes Reports as per HPI and Denies no additional complaints ENT Denies no additional complaints and Reports as per HPI Card Reports as per HPI, Reports no additional complaints, Denies acrocyanosis, Denies chest pain, Denies leg edema, Denies lightheadedness, Denies palpitations and Denies dyspnea Resp Reports as per HPI, Denies no additional complaints and Denies dyspnea GI Reports as per HPI and Denies no additional complaints Reports as per HPI Musc Reports no additional complaints and Reports as per HPI Skin/Breast Reports system reviewed and no additional complaints, except as documented Neuro Reports no additional complaints and Reports as per HPI Psych Reports no additional complaints and Reports as per HPI Endo Reports no additional complaints, Reports as per HPI and Denies palpitations Toño/Lymph Reports no additional complaints and Reports as per HPI Aller/Immun Reports no additional complaints and Reports as per HPI Physical Exam Vital Signs: Last Vital Signs Pulse 49 L 05/17/23 15:19 BP 134/80 05/17/23 15:19 BMI result Body Mass Index 23.1 Const General: comfortable and no acute distress Orientation/consciousness: patient oriented x3 HEENT Other: Unremarkable Head: Yes normal to inspection Neck Neck: Yes normal visual inspection Chest Chest palpation & inspection: normal inspection of the chest Resp Auscultation: clear to auscultation bilaterally Cardio Palpation: normal PMI Heart sounds: S1 normal heart sound present, S2 normal heart sound present, no gallops, no murmurs and no rubs GI Palpation (GI): Soft to palpation Back/Spine/Pelvis Other: unremarkable Skin General skin exam: no rashes or lesions noted Neuro General: patient oriented x3 Extrem General: Yes normal to inspection Psych Mental Status: mental status grossly normal Office Procedures EKG Details: EKG shows sinus bradycardia at 49/Min; RI prolongation to 254 millisecond; incomplete right bundle-branch block type pattern; [place] [id number]-[id number], Complete Assessment & Plan Assessment & Plan (1) Paroxysmal atrial fibrillation: Code(s): I48.0 - Paroxysmal atrial fibrillation (2) Sinus bradycardia: Code(s): R00.1 - Bradycardia, unspecified (3) Encounter for monitoring anti-arrhythmic therapy: Code(s): Z51.81 - Encounter for therapeutic drug level monitoring; Z79.899 - Other intermediate school teacher (current) drug therapy Plan In the recent Holter, underlying rhythm is sinus with an average rate of 42/Min. Range is 29-67/Min. Overall, runs quite bradycardic. Sleep time pauses, longest 2.9 seconds but nothing significant during the daytime. No recurrent atrial fibrillation or flutter. EKG from 19 of April shows atrial fibrillation at a rate of 153/Min; cannot exclude old inferior posterior infarct with ST-T changes, but findings can also be from conduction system disease. Echocardiogram from 03/2023 with LVEF of 65-70%, no wall motion abnormality, [id number] aortic regurgitation. Left atrial size reported to be normal. Overall, recurrent atrial fibrillation in spite of multiple prior ablations. She remains on a small dose of flecainide/metoprolol. May keep it on for now. Will refer to Dr. Lombardo who did the initial ablations, for consideration of pacemaker. Once that is completed, we can hopefully maintain higher doses of medications as needed or consider yet another ablation. With regard to the EKG findings, patient states she had a stress test last year we can get those results. Clinically, she does not have any symptoms of obstructive CAD. Coding Level of Care Code Est Pt Level 4 (75216) Diagnoses Paroxysmal atrial fibrillation I48.0 Sinus bradycardia R00.1 Encounter for monitoring anti-arrhythmic therapy Z51.81; Z79.899 CPT Codes EKG - CPT: 46593-Hgjrsdhtbtbtlctbz, Complete ([id number])
[2023-05-17 15:19] VITALS: BP 134/80; PULSE 49; BMI 23.1
== END 2023-05-17 15:41 | disposition home or self-care (01) ==
PROVIDERS: PCP Nurse Practitioner; Visit Provider Internal Medicine
DX: I48.0 Paroxysmal atrial fibrillation (principal); R00.1 Bradycardia, unspecified; Z51.81 Encounter for therapeutic drug level monitoring; Z79.899 Other long term (current) drug therapy
CPT/HCPCS: 93010; 99214

== ENCOUNTER → 2023-05-17 15:14 | Outpatient (BNVA) | payer OTHER, SELFPAY | PROVIDERS: PCP Nurse Practitioner; Visit Provider Internal Medicine | DX: I48.0 Paroxysmal atrial fibrillation (principal); R00.1 Bradycardia, unspecified; Z79.899 Other long term (current) drug therapy | CPT/HCPCS: 93005 ==

== ENCOUNTER 2023-09-02 15:52 | Outpatient (REF) | payer OTHER, SELFPAY ==
--- NOTE | ~2023-09-02 | MM_ITS ---
EXAMINATION: MM SCREENING DIGITAL BREAST TOMOSYNTHESIS, BILATERAL CLINICAL INFORMATION: Screening. Asymptomatic. COMPARISON: Mammography: This study is compared with prior exams dating back to 2019. TECHNIQUE: Digital breast tomosynthesis is performed in both the craniocaudal and mediolateral oblique views along with computer-aided detection (CAD). Synthesized 2D images are generated from the tomosynthesis. FINDINGS: There are scattered areas of fibroglandular density (ACR BI-RADS breast composition Category b). There are no significant masses, abnormal calcifications, or other abnormalities. There are grouped, coarse benign calcifications in the upper outer quadrant of the left breast which occur in an involuting fibroadenoma. Few, other, bilateral, benign calcifications are present. MM/MM tomosynthesis screening BI IMPRESSION: No mammographic evidence of malignancy. ASSESSMENT: BI-RADS BI-RADS 2 - Benign Findings RECOMMENDATION: Routine annual mammography screening. 1 year F/U This examination should not preclude the clinical evaluation of a suspicious palpable abnormality. This patient's information was entered into a reminder system with a target due date for their next mammogram.
== END 2023-09-02 15:53 | disposition home or self-care (01) ==
LOC: HO.MAMMO 15:52
PROVIDERS: PCP Nurse Practitioner; Visit Provider Nurse Practitioner
DX: Z12.31 Encounter for screening mammogram for malignant neoplasm of breast (principal)
CPT/HCPCS: 77063; 77067

== ENCOUNTER → 2023-09-02 16:00 | Outpatient (BNV) | payer OTHER, SELFPAY | PROVIDERS: PCP Nurse Practitioner; Visit Provider Radiology Diagnostic Radiology | DX: Z12.31 Encounter for screening mammogram for malignant neoplasm of breast (principal) | CPT/HCPCS: 77063; 77067 ==

== ENCOUNTER 2023-10-04 15:17 | Outpatient (AMB) | payer OTHER, SELFPAY ==
--- NOTE | 2023-10-04 15:20 | MHC.OFFVIS ---
Intake Vital Signs 10/04/23 15:26 Height 5 ft 5 in Weight 138 lb 14.259 oz BMI 23.1 BP 160/84 H Blood Pressure Location Lt brachial Position Sitting Pulse 46 L Intake Visit Reasons: followup after dr lombardo visit Intake Note: follow up Parts Department Manager Required: No Accompanied by: Self / Same As Patient Allergies dofetilide [From TIKOSYN] Allergy (Unknown, Verified 10/04/23 15:21) IRREGULAR HEART RATE lisinopril [LISINOPRIL] Allergy (Unknown, Verified 10/04/23 15:21) SWELLING penicillin G Allergy (Unknown, Verified 10/04/23 15:21) RESPIRATORY DISTRESS penicillin V Allergy (Unknown, Verified 10/04/23 15:21) Unknown Penicillin Allergy (Unknown, Uncoded 10/04/23 15:21) Unknown Tikosyn Allergy (Unknown, Uncoded 10/04/23 15:21) Unknown Medication List - Last Reconciled 10/04/23 by Cedric Bruce MD alendronate 70 mg PO WE amlodipine 2.5 mg PO BEDTIME amlodipine 5 mg PO DAILY apixaban (Eliquis) 5 mg PO BID doxepin 10 mg PO BEDTIME flecainide 50 mg PO BID 30 days gabapentin 300 mg PO BEDTIME hydrochlorothiazide 25 mg PO DAILY levothyroxine 125 mcg PO DAILY@0600 metoprolol tartrate 12.5 mg (1/2 x 25 mg) PO BID 90 days metronidazole 500 mg PO BID spironolactone 25 mg PO DAILY HPI HPI Comments History of Present Illness Details Lupe is here for follow-up regarding atrial fibrillation. Previously seeing [facility] but would like to switch her care to us. She has a history of 3 atrial fibrillation ablations, around 10 years ago. She was free of atrial fibrillation for many years but more recently started having episodes of palpitations from recurrent atrial fibrillation. She was trying to self adjust the dose of metoprolol with some relief. Eventually, she did get admitted to [place] where she was in atrial fibrillation with rapid rate. Then given IV Cardizem and converted to sinus rhythm. Outpatient Holter following discharge shows significant sinus bradycardia but no recurrent atrial fibrillation. She is on a small dose of maintenance flecainide/metoprolol. No new cardiac symptoms. She has been seen by Dr. Lombardo and plan for permanent pacemaker implantation coming up. [facility] Medical History (Updated 10/04/23 @ 16:14 by Cedric Bruce MD) Essential hypertension Paroxysmal atrial fibrillation Hypothyroidism Atrial fibrillation Surgical History History of cardiac radiofrequency ablation Family History (Updated 05/17/23 @ 15:30 by Cedric Bruce MD) Father No problems noted. Mother No problems noted. Social History Household Members: Significant Other Housing: House Do you presently have visiting nurse or other home services: No Alcohol intake: former Patient Tobacco Use Status: Never used Tobacco service: No Review of Systems Const Denies weakness ENT Denies dizziness Card Denies chest pain, Denies chest pain with activity, Denies syncope, Denies rapid heart rate, Denies pedal edema, Denies edema, Denies leg edema, Denies lightheadedness, Denies palpitations, Denies dyspnea, Denies dyspnea on exertion and Denies orthopnea Resp Denies cough, Denies dyspnea and Denies dyspnea on exertion GI Denies hematochezia and Denies change in stool character Musc Denies abnormal gait, Denies muscle cramps, Denies muscle weakness, Denies numbness, Denies radiating pain into limb and Denies tingling Neuro Denies abnormal gait, Denies dizziness, Denies syncope, Denies numbness, Denies tingling and Denies weakness Endo Denies palpitations Physical Exam Vital Signs: Last Vital Signs Pulse 46 L 10/04/23 15:26 BP 160/84 H 10/04/23 15:26 BMI result Body Mass Index 23.1 Const General: comfortable and no acute distress Orientation/consciousness: patient oriented x3 HEENT Other: Unremarkable Head: Yes normal to inspection Neck Neck: Yes normal visual inspection Chest Chest palpation & inspection: normal inspection of the chest Resp Auscultation: clear to auscultation bilaterally Cardio Palpation: normal PMI Heart sounds: S1 normal heart sound present, S2 normal heart sound present, no gallops, no murmurs and no rubs GI Palpation (GI): Soft to palpation Back/Spine/Pelvis Other: unremarkable Skin General skin exam: no rashes or lesions noted Neuro General: patient oriented x3 Extrem General: Yes normal to inspection Psych Mental Status: mental status grossly normal Office Procedures EKG Details: EKG with sinus bradycardia at 46/Min; TX prolongation 240 milliseconds; can not exclude old lateral [place]. [id number]-[id number], Complete Assessment & Plan Assessment & Plan (1) Paroxysmal atrial fibrillation: Code(s): I48.0 - Paroxysmal atrial fibrillation (2) Sinus bradycardia: Code(s): R00.1 - Bradycardia, unspecified (3) Encounter for monitoring anti-arrhythmic therapy: Code(s): Z51.81 - Encounter for therapeutic drug level monitoring; Z79.899 - Other senior living (current) drug therapy (4) Essential hypertension: Code(s): I10 - Essential (primary) hypertension Plan Cardiac studies reviewed. In the recent Holter, underlying rhythm is sinus with an average rate of 42/Min. Range is 29-67/Min. Overall, runs quite bradycardic. Sleep time pauses, longest 2.9 seconds but nothing significant during the daytime. No recurrent atrial fibrillation or flutter. Echocardiogram from 03/2023 with LVEF of 65-70%, no wall motion abnormality, [id number] aortic regurgitation. Left atrial size reported to be normal. Myocardial perfusion imaging study from 2021 -10.1 METS workload and no EKG evidence of ischemia. Probably normal perfusion component. She may remain on a small dose of metoprolol/flecainide for now. On anticoagulation. Has been seen by EP and awaiting permanent pacemaker implantation. Following that, we may be able to adjust medications if necessary. With regard to blood pressure, on the higher side. Increase amlodipine dosing. Medications: New amlodipine 5 mg PO BID 90 days 180 tabs 3RF Coding Level of Care Code Est Pt Level 4 (16125) Diagnoses Paroxysmal atrial fibrillation I48.0 Sinus bradycardia R00.1 Encounter for monitoring anti-arrhythmic therapy Z51.81; Z79.899 Essential hypertension I10 CPT Codes EKG - CPT: 90233-Dotleahhrypbliexo, Complete ([id number])
[2023-10-04 15:26] VITALS: BP 160/84; PULSE 46; BMI 23.1
== END 2023-10-04 15:40 | disposition home or self-care (01) ==
PROVIDERS: PCP Nurse Practitioner; Visit Provider Internal Medicine
DX: I48.0 Paroxysmal atrial fibrillation (principal); R00.1 Bradycardia, unspecified; Z51.81 Encounter for therapeutic drug level monitoring; Z79.899 Other long term (current) drug therapy; I10 Essential (primary) hypertension
CPT/HCPCS: 93010; 99214

== ENCOUNTER → 2023-10-04 15:17 | Outpatient (BNVA) | payer OTHER, SELFPAY | PROVIDERS: PCP Nurse Practitioner; Visit Provider Internal Medicine | DX: I48.0 Paroxysmal atrial fibrillation (principal); R01.1 Cardiac murmur, unspecified; I10 Essential (primary) hypertension; Z79.01 Long term (current) use of anticoagulants; Z79.899 Other long term (current) drug therapy | CPT/HCPCS: 93005 ==

== ENCOUNTER 2023-12-14 13:59 | Outpatient (AMB) | payer OTHER, SELFPAY ==
--- NOTE | 2023-12-14 14:02 | MHC.OFFVIS ---
Vital Signs 12/14/23 14:03 Height 5 ft 5 in Weight 136 lb 10.986 oz BMI 22.7 BP 130/68 Blood Pressure Location Lt brachial Position Sitting Pulse 73 Pulse Source Monitor Intake Visit Reasons: 2 wk s/p Med device implant Allergies dofetilide [From TIKOSYN] Allergy (Unknown, Verified 10/04/23 15:21) IRREGULAR HEART RATE lisinopril [LISINOPRIL] Allergy (Unknown, Verified 10/04/23 15:21) SWELLING penicillin G Allergy (Unknown, Verified 10/04/23 15:21) RESPIRATORY DISTRESS penicillin V Allergy (Unknown, Verified 10/04/23 15:21) Unknown Penicillin Allergy (Unknown, Uncoded 10/04/23 15:21) Unknown Tikosyn Allergy (Unknown, Uncoded 10/04/23 15:21) Unknown Medication List - Last Reconciled 12/14/23 by Kirsten Tijerina NP alendronate 70 mg PO WE amlodipine 5 mg PO BID 90 days apixaban (Eliquis) 5 mg PO BID doxepin 10 mg PO BEDTIME flecainide 50 mg PO BID 30 days gabapentin 300 mg PO BEDTIME hydrochlorothiazide 25 mg PO DAILY levothyroxine 125 mcg PO DAILY@0600 metoprolol tartrate 12.5 mg (1/2 x 25 mg) PO BID 90 days spironolactone 25 mg PO DAILY HPI Comments Details: 68-year-old female presents today for a follow-up after pacemaker placement. She had a Medtronic device implanted on 11/29/[address] Lombardo. She reports she has been doing well. No drainage, swelling, tenderness, fever, or chills. [facility] Medical History Essential hypertension Paroxysmal atrial fibrillation Hypothyroidism Atrial fibrillation Surgical History (Updated 12/15/23 @ 07:40 by Kirsten Tijerina NP) Status post cardiac pacemaker procedure History of cardiac radiofrequency ablation Family History Father No problems noted. Mother No problems noted. Social History Household Members: Significant Other Housing: House Do you presently have visiting nurse or other home services: No Alcohol intake: former Patient Tobacco Use Status: Never used Tobacco service: No Review of Systems Const Denies weakness ENT Denies dizziness Card Denies chest pain, Denies chest pain with activity, Denies syncope, Denies rapid heart rate, Denies pedal edema, Denies edema, Denies leg edema, Denies lightheadedness, Denies palpitations, Denies dyspnea, Denies dyspnea on exertion and Denies orthopnea Resp Denies cough, Denies dyspnea and Denies dyspnea on exertion GI Denies hematochezia and Denies change in stool character Musc Denies abnormal gait, Denies muscle cramps, Denies muscle weakness, Denies numbness, Denies radiating pain into limb and Denies tingling Neuro Denies abnormal gait, Denies dizziness, Denies syncope, Denies numbness, Denies tingling and Denies weakness Endo Denies palpitations Physical Exam Vital Signs: Last Vital Signs Pulse 73 12/14/23 14:03 BP 130/68 12/14/23 14:03 BMI result Body Mass Index 22.7 Const Other: Left chest surgical incision for pacemaker. Well approximated. No signs of infection noted. General: healthy appearing and no acute distress Orientation/consciousness: patient oriented x3 HEENT Head: Yes normal to inspection Eyes General: appearance normal, both eyes and all related structures Neck Neck: Yes normal visual inspection Chest Chest palpation & inspection: normal inspection of the chest Resp Effort & Inspection: normal respiratory effort Auscultation: clear to auscultation bilaterally Cardio Jugular venous distension: no JVD Palpation: normal PMI Rate: regular rate Rhythm: regular rhythm Heart sounds: S1 normal heart sound present, S2 normal heart sound present, no click, no gallops, no murmurs and no rubs GI Inspection: Yes normal to inspection Palpation (GI): Soft to palpation Skin General skin exam: no rashes or lesions noted Neuro General: patient oriented x3 Extrem General: Yes normal to inspection Psych Appearance: grossly normal Office Procedures EKG Details: EKG today. Rate 73 bpm. Atrial paced rhythm with prolonged AV conduction. Aaterolateral infarct, age undeermined. QRS 92ms. QTc 431ms. [id number]-[id number], Complete Assessment & Plan Assessment & Plan (1) Status post cardiac pacemaker procedure: Code(s): Z95.0 - Presence of cardiac pacemaker Category: Surgical Plan Medtronic pacemaker. Connected on remote. Discussed how remote monitoring works and how to send a transmission. Signs and symptoms of infection reviewed. Coding Level of Care Code Est Pt Level 3 (24021) Diagnoses Status post cardiac pacemaker procedure Z95.0 CPT Codes EKG - CPT: 55248-Awqinvbufdnkuxmkb, Complete ([id number])
[2023-12-14 14:03] VITALS: BP 130/68; PULSE 73; BMI 22.7
== END 2023-12-14 14:53 | disposition home or self-care (01) ==
PROVIDERS: PCP Nurse Practitioner; Visit Provider Nurse Practitioner
DX: R94.31 Abnormal electrocardiogram [ECG] [EKG] (principal); Z45.018 Encounter for adjustment and management of other part of cardiac pacemaker; Z95.0 Presence of cardiac pacemaker
CPT/HCPCS: 93010; 99213

== ENCOUNTER → 2023-12-14 13:59 | Outpatient (BNVA) | payer OTHER, SELFPAY | PROVIDERS: PCP Nurse Practitioner; Visit Provider Nurse Practitioner | DX: Z48.812 Encounter for surgical aftercare following surgery on the circulatory system (principal); Z95.0 Presence of cardiac pacemaker | CPT/HCPCS: 93005 ==

== ENCOUNTER → 2024-01-15 23:59 | Outpatient (BNV) | payer OTHER, SELFPAY ==
--- NOTE | 2024-01-23 11:16 | MHC.OFFVIS ---
Intake Visit Reasons: Remote device check- Medtronic Allergies dofetilide [From TIKOSYN] Allergy (Unknown, Verified 10/04/23 15:21) IRREGULAR HEART RATE lisinopril [LISINOPRIL] Allergy (Unknown, Verified 10/04/23 15:21) SWELLING penicillin G Allergy (Unknown, Verified 10/04/23 15:21) RESPIRATORY DISTRESS penicillin V Allergy (Unknown, Verified 10/04/23 15:21) Unknown Penicillin Allergy (Unknown, Uncoded 10/04/23 15:21) Unknown Tikosyn Allergy (Unknown, Uncoded 10/04/23 15:21) Unknown [facility] Medical History Essential hypertension Paroxysmal atrial fibrillation Hypothyroidism Atrial fibrillation Surgical History (Updated 12/15/23 @ 07:40 by Kirsten Tijerina NP) Status post cardiac pacemaker procedure History of cardiac radiofrequency ablation Family History Father No problems noted. Mother No problems noted. Social History Household Members: Significant Other Housing: House Do you presently have visiting nurse or other home services: No Alcohol intake: former Patient Tobacco Use Status: Never used Tobacco service: No Office Procedures Cardiac Device Check Cardiac Device Check Details: Date of service- 01/15/2024 ; Battery life 12 years; normal lead parameters; AP 94%; CAFETERIA SERVER <0.1%; no significant arrhythmias. Overall normal device function. [id number] Cardiac Device Interrogation, pacemaker Procedure code (CPT) selection complete Assessment & Plan Assessment & Plan (1) Atrial fibrillation: Code(s): I48.91 - Unspecified atrial fibrillation Category: Medical (2) Sinus bradycardia: Code(s): R00.1 - Bradycardia, unspecified Category: Medical Plan x Coding Level of Care Code Procedure Only Diagnoses Atrial fibrillation I48.91 Sinus bradycardia R00.1 CPT Codes Cardiac Device Check - Cardiac Device 12: [id number] Cardiac Device Interrogation, pacemaker ([id number])
== END ==
PROVIDERS: PCP Nurse Practitioner; Visit Provider Internal Medicine
DX: I48.91 Unspecified atrial fibrillation (principal); R00.1 Bradycardia, unspecified; Z95.0 Presence of cardiac pacemaker
CPT/HCPCS: 93294

== ENCOUNTER 2024-01-24 14:13 | Outpatient (AMB) | payer OTHER, SELFPAY ==
[2024-01-24 14:17] VITALS: BP 138/70; PULSE 73; BMI 22.6
--- NOTE | 2024-01-24 14:17 | A.OFFVIS_ITS ---
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 Required: No Accompanied by: Self / Same As Patient Allergies dofetilide [From TIKOSYN] Allergy (Unknown, Verified 10/04/23 15:21) IRREGULAR HEART RATE lisinopril [LISINOPRIL] Allergy (Unknown, Verified 10/04/23 15:21) SWELLING penicillin G Allergy (Unknown, Verified 10/04/23 15:21) RESPIRATORY DISTRESS penicillin V Allergy (Unknown, Verified 10/04/23 15:21) Unknown Penicillin Allergy (Unknown, Uncoded 10/04/23 15:21) Unknown Tikosyn Allergy (Unknown, Uncoded 10/04/23 15:21) Unknown Medication List - Last Reconciled 01/24/24 by Cedric Bruce MD alendronate 70 mg PO WE amlodipine 2.5 mg PO ONCE 90 days apixaban (Eliquis) 5 mg PO BID carvedilol 6.25 mg PO BID 90 days doxepin 10 mg PO BEDTIME flecainide 50 mg PO BID 30 days gabapentin 300 mg PO BEDTIME hydrochlorothiazide 25 mg PO DAILY levothyroxine 125 mcg PO DAILY@0600 spironolactone 25 mg PO DAILY HPI Comments Details: Lupe returns for follow-up. History of paroxysmal atrial fibrillation and previously seen at [facility]. She has a history of 3 atrial fibrillation ablations, around 10 years ago. She was free of atrial fibrillation for many years but more recently started having episodes of palpitations from recurrent atrial fibrillation. Currently, she is on combination of carvedilol as well as flecainide. She was also having significant bradycardia and because of this he was sent for EP consultation. Underwent pacemaker placement. After that, she states she is actually much better and overall feels quite good. No cardiac complaints. No palpitations or in fact anything else of concern. [facility] Medical History Essential hypertension Paroxysmal atrial fibrillation Hypothyroidism Atrial fibrillation Surgical History Status post cardiac pacemaker procedure History of cardiac radiofrequency ablation Family History Father No problems noted. Mother No problems noted. Social History Household Members: Significant Other Housing: House Do you presently have visiting nurse or other home services: No Alcohol intake: former Patient Tobacco Use Status: Never used Tobacco service: No Review of Systems Const All systems reviewed & are unremarkable except as noted in HPI and below Denies chills, Denies fatigue, Denies fever(s), Denies weight gain and Denies weight loss Eyes Reports as per HPI and Denies no additional complaints ENT Denies no additional complaints and Reports as per HPI Card Denies chest pain, Denies leg edema, Denies lightheadedness, Denies palpitations, Denies dyspnea on exertion and Denies orthopnea Resp Denies cough and Denies dyspnea on exertion GI Denies hematochezia and Denies change in stool character Reports as per HPI Musc Denies muscle weakness and Denies radiating pain into limb Skin/Breast Reports system reviewed and no additional complaints, except as documented Neuro Reports no additional complaints and Reports as per HPI Psych Reports no additional complaints and Reports as per HPI Endo Denies fatigue and Denies palpitations Toño/Lymph Reports no additional complaints and Reports as per HPI Aller/Immun Reports no additional complaints and Reports as per HPI Physical Exam Vital Signs: Last Vital Signs Pulse 73 01/24/24 14:17 BP 138/70 01/24/24 14:17 BMI result Body Mass Index 22.6 Const General: comfortable and no acute distress Orientation/consciousness: patient oriented x3 HEENT Other: Unremarkable Head: Yes normal to inspection Neck Neck: Yes normal visual inspection Chest Chest palpation & inspection: normal inspection of the chest Resp Auscultation: clear to auscultation bilaterally Cardio Palpation: normal PMI Heart sounds: S1 normal heart sound present, S2 normal heart sound present, no gallops, no murmurs and no rubs GI Palpation (GI): Soft to palpation Back/Spine/Pelvis Other: unremarkable Skin General skin exam: no rashes or lesions noted Neuro General: patient oriented x3 Extrem General: Yes normal to inspection Psych Mental Status: mental status grossly normal Office Procedures Cardiac Device Check Cardiac Device Check Details: Pacemaker interrogated today. Programmed [id number]. Battery status 12 years increased to 16 years with adjustments. Rate responses been adjusted. Normal lead parameters. Atrial pacing 90%. Minimal ventricular pacing. No significant arrhythmias. Overall, normal device function. [id number] Cardiac Device Check, pacemaker dual lead Procedure code (CPT) selection complete EKG Details: EKG with either sinus rhythm or atrial pacing at 73/Min. [id number], Complete Assessment & Plan Assessment & Plan (1) Paroxysmal atrial fibrillation: Code(s): I48.0 - Paroxysmal atrial fibrillation Category: Medical (2) Sinus bradycardia: Code(s): R00.1 - Bradycardia, unspecified Category: Medical (3) Encounter for monitoring anti-arrhythmic therapy: Code(s): Z51.81 - Encounter for therapeutic drug level monitoring; Z79.899 - Other shelter (current) drug therapy Category: Medical (4) Essential hypertension: Code(s): I10 - Essential (primary) hypertension Category: Medical Plan Cardiac studies reviewed. Echocardiogram from 03/2023 with LVEF of 65-70%, no wall motion abnormality, [id number] aortic regurgitation. Left atrial size reported to be normal. Myocardial perfusion imaging study from 2021 -10.1 METS workload and no EKG evidence of ischemia. Probably normal perfusion component. Pacemaker function checked today is within normal limits. Currently, she has stable on a combination of carvedilol/flecainide. No changes in that end. Continue with anticoagulation. Blood pressure is also stable on the current regimen. She remains on amlodipine, hydrochlorothiazide, spironolactone as well as carvedilol as above. Will need to obtain the last BMP from PCP. Follow-up in 6 months. Coding Level of Care Code Est Pt Level 4 (93353) Diagnoses Paroxysmal atrial fibrillation I48.0 Sinus bradycardia R00.1 Encounter for monitoring anti-arrhythmic therapy Z51.81; Z79.899 Essential hypertension I10 CPT Codes Cardiac Device Check - Cardiac Device 2: [id number] Cardiac Device Check, pacemaker dual lead ([id number]) EKG - CPT: 82746-Ngysjdanhyzxrbuax, Complete ([id number])
== END 2024-01-24 14:57 | disposition home or self-care (01) ==
PROVIDERS: PCP Nurse Practitioner; Visit Provider Internal Medicine
DX: I48.0 Paroxysmal atrial fibrillation (principal); R00.1 Bradycardia, unspecified; Z51.81 Encounter for therapeutic drug level monitoring; Z79.899 Other long term (current) drug therapy; I10 Essential (primary) hypertension
CPT/HCPCS: 93010; 93280; 99214

== ENCOUNTER → 2024-01-24 14:13 | Outpatient (BNVA) | payer OTHER, SELFPAY | PROVIDERS: PCP Nurse Practitioner; Visit Provider Internal Medicine | DX: I48.0 Paroxysmal atrial fibrillation (principal); R00.1 Bradycardia, unspecified; I10 Essential (primary) hypertension; Z79.899 Other long term (current) drug therapy; Z45.018 Encounter for adjustment and management of other part of cardiac pacemaker | CPT/HCPCS: 93005; 93280 ==

== ENCOUNTER → 2024-04-16 23:59 | Outpatient (BNV) | payer OTHER, SELFPAY ==
--- NOTE | 2024-04-17 14:46 | A.OFFVIS_ITS ---
Intake Visit Reasons: Remote device check- [employer] Allergies dofetilide [From TIKOSYN] Allergy (Unknown, Verified 10/04/23 15:21) IRREGULAR HEART RATE lisinopril [LISINOPRIL] Allergy (Unknown, Verified 10/04/23 15:21) SWELLING penicillin G Allergy (Unknown, Verified 10/04/23 15:21) RESPIRATORY DISTRESS penicillin V Allergy (Unknown, Verified 10/04/23 15:21) Unknown Penicillin Allergy (Unknown, Uncoded 10/04/23 15:21) Unknown Tikosyn Allergy (Unknown, Uncoded 10/04/23 15:21) Unknown [facility] Medical History (Updated 04/17/24 @ 14:47 by Cedric Bruce MD) Essential hypertension Paroxysmal atrial fibrillation Hypothyroidism Atrial fibrillation Surgical History Status post cardiac pacemaker procedure History of cardiac radiofrequency ablation Family History Father No problems noted. Mother No problems noted. 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 Overall normal device function. [id number] Cardiac Device Interrogation, pacemaker Procedure code (CPT) selection complete Assessment & Plan Assessment & Plan (1) Pacemaker: Code(s): Z95.0 - Presence of cardiac pacemaker Category: Medical (2) Sinus bradycardia: Code(s): R00.1 - Bradycardia, unspecified Category: Medical Plan x Coding Level of Care Code Procedure Only Diagnoses Pacemaker Z95.0 Sinus bradycardia R00.1 CPT Codes Cardiac Device Check - Cardiac Device 12: [id number] Cardiac Device Interrogation, pacemaker ([id number])
== END ==
PROVIDERS: PCP Nurse Practitioner; Visit Provider Internal Medicine
DX: R00.1 Bradycardia, unspecified (principal); Z95.0 Presence of cardiac pacemaker
CPT/HCPCS: 93294

== ENCOUNTER 2024-07-31 12:55 | Outpatient (AMB) | payer OTHER, SELFPAY ==
[2024-07-31 13:17] VITALS: BP 122/78; PULSE 74; BMI 22.7
--- NOTE | 2024-07-31 13:17 | A.OFFVIS_ITS ---
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 Allergies dofetilide [From TIKOSYN] Allergy (Unknown, Verified 10/04/23 15:21) IRREGULAR HEART RATE lisinopril [LISINOPRIL] Allergy (Unknown, Verified 10/04/23 15:21) SWELLING penicillin G Allergy (Unknown, Verified 10/04/23 15:21) RESPIRATORY DISTRESS penicillin V Allergy (Unknown, Verified 10/04/23 15:21) Unknown Penicillin Allergy (Unknown, Uncoded 10/04/23 15:21) Unknown Tikosyn Allergy (Unknown, Uncoded 10/04/23 15:21) Unknown Medication List - Last Reconciled 07/31/24 by Cedric Bruce MD alendronate 70 mg PO WE amlodipine 2.5 mg PO ONCE 90 days apixaban (Eliquis) 5 mg PO BID carvedilol 6.25 mg PO BID 90 days doxepin 10 mg PO BEDTIME flecainide 50 mg PO BID 30 days gabapentin 300 mg PO BEDTIME hydrochlorothiazide 25 mg PO DAILY levothyroxine 125 mcg PO DAILY@0600 spironolactone 25 mg PO DAILY HPI Comments Details: uLpe returns for follow-up. History of paroxysmal atrial fibrillation and previously seen at [facility]. She has a history of 3 atrial fibrillation ablations, around 10 years ago. She was free of atrial fibr illation for many years but more recently started having episodes of palpitations from recurrent atrial fibrillation. Currently, she is on combination of carvedilol as well as flecainide. She was also having significant bradycardia and because of this he was sent for EP consultation. Underwent pacemaker placement. After that, she states she is actually much better and overall feels quite good. No cardiac complaints. No palpitations or in fact anything else of concern. [facility] Medical History (Updated 07/31/24 @ 16:19 by Cedric Bruce MD) Essential hypertension Paroxysmal atrial fibrillation Hypothyroidism Atrial fibrillation Surgical History Status post cardiac pacemaker procedure History of cardiac radiofrequency ablation Family History Father No problems noted. Mother No problems noted. Social History Household Members: Significant Other Housing: House Do you presently have visiting nurse or other home services: No Alcohol intake: former Patient Tobacco Use Status: Never used Tobacco service: No Review of Systems Const Denies weakness ENT Denies dizziness Card Denies chest pain, Denies chest pain with activity, Denies syncope, Denies rapid heart rate, Denies pedal edema, Denies edema, Denies leg edema, Denies lightheadedness, Denies palpitations, Denies dyspnea, Denies dyspnea on exertion and Denies orthopnea Resp Denies cough, Denies dyspnea and Denies dyspnea on exertion GI Denies hematochezia and Denies change in stool character Musc Denies abnormal gait, Denies muscle cramps, Denies muscle weakness, Denies numbness, Denies radiating pain into limb and Denies tingling Neuro Denies abnormal gait, Denies dizziness, Denies syncope, Denies numbness, Denies tingling and Denies weakness Endo Denies palpitations Physical Exam Vital Signs: Last Vital Signs Pulse 74 07/31/24 13:17 BP 122/78 07/31/24 13:17 BMI result Body Mass Index 22.7 Const General: comfortable and no acute distress Orientation/consciousness: patient oriented x3 HEENT Other: Unremarkable Head: Yes normal to inspection Neck Neck: Yes normal visual inspection Chest Chest palpation & inspection: normal inspection of the chest Resp Auscultation: clear to auscultation bilaterally Cardio Palpation: normal PMI Heart sounds: S1 normal heart sound present, S2 normal heart sound present, no gallops, no murmurs and no rubs GI Palpation (GI): Soft to palpation Back/Spine/Pelvis Other: unremarkable Skin General skin exam: no rashes or lesions noted Neuro General: patient oriented x3 Extrem General: Yes normal to inspection Psych Mental Status: mental status grossly normal Office Procedures Cardiac Device Check Cardiac Device Check Details: Pacemaker interrogated today. Battery status 12.1 years. Programmed DDDR. Normal lead parameters. Atrial pacing 92%. Ventricular pacing 44%. No AT/AF. Isolated PVCs. No clear alerts. Overall, normal device function. [id number] Cardiac Device Check, pacemaker dual lead Procedure code (CPT) selection complete EKG Details: EKG with AV dual-chamber paced rhythm at 74/Min. Some ST downsloping inferior/lateral and this has been seen intermittently, some more than others. 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 Echocardiogram from 03/2023 with LVEF of 65-70%, no wall motion abnormality, [id number] aortic regurgitation. Left atrial size reported to be normal. Myocardial perfusion imaging study from 2021 -10.1 METS workload and no EKG evidence of ischemia. Probably normal perfusion component. Pacemaker function checked today is within normal limits. She has not had any recurrent atrial fibrillation on the current combination of carvedilol/flecainide. May continue that. Continue anticoagulation without changes. With regard to the PVCs, noted on device check counter, previously holter with low burden; intermittently EKG has also shown that. With unremarkable testing, can monitor pacer remotely for anything sustained. With regard to blood pressure, on a combination of amlodipine, carvedilol, hydrochlorothiazide, spironolactone. Stable. Last available Cr 0.9. Follow-up in 6 months. Coding Level of Care Code Est Pt Level 4 (85300) Diagnoses Paroxysmal atrial fibrillation I48.0 Sinus bradycardia R00.1 Encounter for monitoring anti-arrhythmic therapy Z51.81; Z79.899 PVC (premature ventricular contraction) I49.3 Essential hypertension I10 CPT Codes Cardiac Device Check - Cardiac Device 2: [id number] Cardiac Device Check, pacemaker dual lead ([id number]) EKG - CPT: 61815-Ubcjyholcnqherbgv, Complete ([id number])
--- OUTSIDE RECORDS SUMMARY | 2024-07-31 15:07 | XMS_ITS | Data Portability ---
Author Organization [place] [facility], Main Office Address [address] [place] [address] Care Team Providers Care Customer Complaint Service Supervisor Name Role Phone SAMUEL TATUM Primary Care Provider [phone] SAMUEL TATUM Referring Provider [phone] Assessment No assessment recorded. Plan of Treatment Reminders Order Date Submit Date Provider Last Modified By Organization Details Last Modified Time Details Appointments None recorded . Lab None recorded . Referral physical therapis t referral 2015 016 [id number] [facility], [address] [place] [address], [address], 6 04:04:22 Procedures None recorded . Surgeries None recorded . Imaging XR, hip, unilater al 2015 016 [facility] (Radiology), [address] [place] [address], [address], 6 13:18:00 XR, hip, unilater al 2015 016 [id number] [facility] [address], [address], 6 04:04:23 XR, hip, unilater al 2015 016 [facility] [address], [address], 6 09:13:27 Medication Orders None recorded . Patient TargetsNo targets recorded. Patient Instructions Encounter Date Encounter Id Patient Instructions Last Modified By Organization Details Last Modified Time 01/08/2016 [id number] She is scheduled for upcoming left total hip replacement surgery. ??We have reviewed the surgical procedure, the postoperative recovery, and the rehabilitation timeline. ??We have discussed risks of surgery including infection, wound healing problems, stiffness, difficulties with rehabilitation, and the possibility of persistent pain. ??Specifically we have discussed risks related to infection and blood clot and the use of prophylactic antibiotics and DVT prophylaxis. ??She understands that while these interventions below her the potential for complication, it certainly does not eliminate them. ??She has signed a full informed consent in my presence. ??We will go ahead and set her up for the planned surgical procedure of a left anterior total hip replacement to be done this coming Wednesday elie Not available 01/09/2016 08:18:44 01/29/2016 [id number] Her hip looks great. ??She has some swelling but otherwise things look very good. ??Her x-ray shows a well aligned hip prosthesis. ??The cup is very slightly proud, but looks to be well engaged on the periphery. ??I think it looks completely stable and she is feeling fine. ??She will follow up with me in 4 weeks elie Not available 01/29/2016 13:51:00 02/26/2016 [id number] hip looks great. We will see her back next time with an xray elie Not available 02/26/2016 13:45:27 04/08/2016 [id number] She still has so me thigh pain, but otherwise is doing well. She seems to be making slow, but steady progress with physical therapy. I have encouraged her to continue with this and follow up with me at the 6 month tracey. I don't see any signs of issues and I think this is just normal strengthening of the muscles that she has not been using for a long time elie Not available 04/08/2016 21:10:54 07/06/[id number] She continues to have some generalized aching sensations around the hip and the thigh. Her x-rays look great. I don't see any signs of loosening or implant issues. I suggested she continue to work on strengthening and hopefully over the next 6 months things will gradually improve. In addition, most of her tenderness is directly over the trochanteric bursa and I've suggested we do a cortisone injection to see if that helps give her some relief elie Not available 07/08/2016 10:54:39 Reason for Referral Referring Physician: Mayra Carrion, Orthopedic Surgery, Encounter Date: 04/08/2016 Results Created Date Observation Date Name Description Value Unit Range Abnormal Flag Note LastModifiedBy Organization Detail LastModifiedTime 12/24/19 16 12/23/2015 CT, pelvi s No observ ation record ed. [facility] (Radiology) [address] [place], [address], 12/24/2015 13:11:30 01/14/20 16 01/14/2016 CT, pelvi s No observ ation record ed. [facility] ([facility]) [address], [address], 01/15/2016 08:00:00 Result Notes None recorded. Problems Name Problem SNOMED Code Status Onset Date Resolution Date Notes Provider Name and Address Organization Details Recorded Time Localized, primary osteoarthritis of the pelvic region and thigh 515549053 Active Martin Carrion MD [address] [place] [address],[address], [place], [address], [facility] 13:50:59 Problem Notes None recorded. Procedures Surgical History Date Name Laterality Status Provider Name and Address Organization Details Recorded Time 07/06/20 16 Steroid Injection/Major Joint or Bursa completed Martin Carrion MD [address] [place] [address],[address], [place], [address], [facility] 07/08/2016 10:54:19 01/14/20 16 TOTAL HIP ARTHROPLASTY (SURG) completed Valarie Damon [facility] 01/15/2016 15:02:43 07/19/19 14 Other completed Valarie Damon [facility] 10/28/2015 10:33:33 Imaging Results Imaging Date Name Status LastModified by Organiz ation Details LastModified Time 12/23/2015 CT, pelvis completed [facility] (Radiology) [address] [place], [address], 12/24/2015 13:11:30 01/14/2016 CT, pelvis completed [facility] ([facility]) [address], [place], [address], 01/15/2016 08:00:00 Procedure Notes None recorded. Medical Equipment None Reported. Allergies Allergen ID Allergen Name Allergen Category Reaction Reaction Severity Criticality Documentation Date Start Date Code Code System Note Provider Name and Address Organization Details Recorded Time 81391 Medicinal product containin g penicilli n and acting as antibacte rial agent (product) medicatio n Not available Not available Not available 10/23/2015 74153 05 SNOMED Valentina zuniga [place] - [facility] 6 15:33:53 Medications Name Sig Start Date Stop Date Status Note LastModified by Organization Details LastModified Time methocarbam ol 500 mg tablet 10/17 completed Not Available Not Available Not Available azithromyci n 250 mg tablet active Not Available Not Available Not Available metoprolol succinate ER 50 mg tablet,exte nded release 24 hr take 1 tablet by mouth once daily active Not Available Not Available No t Available hydrocodone 5 mg-acetamin ophen 325 mg tablet take 1 to 2 tablets by mouth every 6 hours if needed for pain 10/17 completed Not Available Not Available Not Available lisinopril 20 mg tablet active Not Available Not Available Not Available ondansetron HCl 4 mg tablet take 1 tablet by mouth every 6 hours if needed for nausea and vomiting 10/22 completed Not Available Not Available Not Available valsartan 80 mg tablet active Not Available Not Available Not Available amlodipine 5 mg tablet take 1 tablet by mouth once daily 10/22 completed Not Available Not Available Not Available tramadol 50 mg tablet active Not Available Not Available No t Available terbinafine HCl 250 mg tablet take 1 tablet by mouth once daily 10/17 completed Not Available Not Available Not Available citalopram 20 mg tablet take 1 tablet by mouth once daily 10/17 completed Not Available Not Available Not Available aspirin 325 mg tablet,lyndsay yed release TAKE 1 TABLET BY MOUTH AT 8AM AND 1 TABLET AT 8PM FOR 30 DAYS THE... (REFER TO PRESCRIPT ION NOTES). active Not Available Not Available No t Available amlodipine 10 mg tablet active Not Available Not Available Not Available Cartia XT 120 mg capsule,ext ended release 10/22 completed Not Available Not Available Not Available levothyroxi ne 125 mcg tablet take 1 tablet by mouth once daily active Not Available Not Available No t Available lisinopril 10 mg tablet active Not Available Not Available Not Available diclofenac sodium 75 mg tablet,lyndsay yed release take 1 tablet by mouth twice a day 10/17 completed Not Available Not Available Not Available metoprolol succinate ER 25 mg tablet,exte nded release 24 hr active Not Available Not Available Not Available lorazepam 1 mg tablet TAKE 1 TABLET BY MOUTH 3 TIMES A DAY NEEDED FOR MUSCLE SPASM 10/22 completed Not Available Not Available Not Available indomethaci n ER 75 mg capsule,ext ended release take 1 capsule by mouth once daily 10/17 completed Not Available Not Available Not Available Col-Rite 100 mg capsule TAKE 1 CAPSULE BY MOUTH TWICE DAILY active Not Available Not Available No t Available Afluria (PF) 45 mcg (15 mcg x 3)/0.5 mL IM syringe inject 0.5 millilite r intramusc ularly 10/22 completed Not Available Not Available Not Available Afluria [id number] (PF) 45 mcg(15 mcg x 3)/0.5 mL intramuscul ar syringe inject 0.5 millilite r intramusc ularly active Not Available Not Available No t Available Vitals None Recorded Social History Question Answer Notes LastModified by Organizat ion Details LastModified Time Tobacco Smoking Status Never Smoker Valentina Yates null, [place] - [facility] 10/23/2015 15:33:53 What Is Your Level Of Alcohol Consumption? 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 Left Information not available 10/23/2015 Single Or Multi-level Home/work? Single Level Home Information not available 10/23/2015 Live Alone Or With Others? With Others ssantelli Information not available 10/28/2015 Marital Status Information not available 10/23/2015 How Many Children Do You Have? 2 Information not available 10/23/2015 How Much Tobacco Do You Smoke? No Information not available 10/23/2015 Sex: Unknown Functional Status Question Answer Note LastModified by Organization D etails LastModified Time What is your exercise level? Moderate Information not available 10/23/2015 Mental Status None recorded. Family History Relationship Description Onset Age of this Age Resolved Age Notes LastModified by Organization Details LastModified Time Unspecified Relation Hypertensive disorder ssantelli Not available 2015 13:25:36 Unspecified Relation Malignant neoplastic disease ssantelli Not available 2015 13:25:36 Unspecified Relation Arthritis ssantelli Not available 01/07 13:25:36 Medical History Condition Response Anxiety Disorder Y Thyroid Problems Y Hypertension Y Depression Y Gynecological HistoryNo gynecological history recorded. Obstetrics History GPAL:G 0 P 0 0 0 0 Past Encounters Encounter ID Performer Location Encounter Start Date Encounter Closed Date Diagnosis/Indication Diagnosis SNOMED-CT Code Diagnosis ICD10 Code Diagnosis Note [id number] Martin Carrion MD [address] [place] [phone] 10/23/2015 14:21:07 10/31/2015 13:43:49 Localized, primary osteoarthritis of the pelvic region and thigh 671849675 M16.0 [id number] Martin Carrion MD [address] [place] [address] 01/08/2016 13:19:34 01/15/2016 16:18:54 Localized, primary osteoarthritis of the pelvic region and thigh 265953233 M19.91 [id number] Martin Carrion MD [address] [place] [address] 01/29/2016 13:29:18 01/31/2016 13:18:00 Localized, primary osteoarthritis of the pelvic region and thigh [id number] M19.91 [id number] Martin Carrion MD [address] [place] [phone] 02/26/2016 13:22:42 03/05/2016 09:22:27 Localized, primary osteoarthritis of the pelvic region and thigh 700027775 M19.91 [id number] Martin Carrion MD [address] [place] [address] 04/08/2016 16:32:32 04/17/2016 10:38:44 Localized, primary osteoarthritis of the pelvic region and thigh 483449174 M19.91 [id number] Martin Carrion MD Main Office [address] [place] [phone] 07/06/2016 09:06:05 07/15/2016 09:13:27 Localized, primary osteoarthritis of the pelvic region and thigh 682733381 M19.91 Health Concerns Section Related Observation LastModified by Organization Detai ls LastModified Time None Recorded Concern Status LastModified by Organization Details LastModified Time None Recorded Advance Directives Directive None Recorded Payers Encounter Date Sequence Insurance Name Policy Number Policy Becerra Covered Member ID Becerra Member ID Guarantor Name 01/08/2016 1 [facility] [id number] Lupe Benjamin [id number] Lupe Benjamin 01/29/2016 1 [facility] [id number] Lupe Benjamin [id number] Lupe Benjamin 02/26/2016 1 [facility] [id number] Lupe Benjamin [id number] Lupe Benjamin 04/08/2016 1 [facility] [id number] Lupe Benjamin [id number] Lupe Benjamin 07/06/2016 1 [facility] [id number] Lupe Benjamin [id number] Lupe Benjamin Notes Date Note Type Note Provider Name and Address Organization Details Recorded Time 01/08/2016 text/html Hip(s)Reported bypatient.Location :bilateral; anterior; deep; groin Quality:aching; stabbing; sharp; deep; frequent; worsening Severity:moderate; severe Duration:years Timing:chronic; gradual Context:cannot identify Alleviating Factors:rest Aggravating Factors:walking; twisting; bending/squatting; ROM; exercise Associated Symptoms:no weakness; no numbness; no tingling; no swelling; no redness; no warmth; no ecchymosis; no grinding; no instability; no radiation down leg; no drainage; no fever; no chills; no weight loss; no change in bowel/bladder habits;catching/lo cking;popping/clic selina;buckling Previous Surgery:none Prior Imaging:x ray Previous Injections:helped a little; helped temporarily Previous PT:did not help Martin Carrion MD [address] [place] [address],[address], [place], [address], [facility] 01/09/2016 08:18:53 01/29/2016 text/html Fracture/Post-Op Follow UpReported bypatient.Swelling :moderate Pain:none;mild Wound problems:no Numbness:none Weakness:none Tingling:none Weight Bearing:full Assistive Devices:none Do you need a prescription renewal?no Martin Carrion MD [address] [place] [address],[address], [place], [address], [facility] 01/29/2016 13:51:08 02/26/2016 text/html Fracture/Post-Op Follow UpReported bypatient.Swelling :none Pain:none;mild Wound problems:no Numbness:none Weakness:none Tingling:none Weight Bearing:full Assistive Devices:none Do you need a prescription renewal?no Martin Carrion MD [address] [place] [address],[address], [place], [address], [facility] 02/26/2016 13:45:39 04/08/2016 text/html Fracture/Post-Op Follow UpReported bypatient.Swelling :none Pain:none;mild Wound problems:no Numbness:none Weakness:none Tingling:none Weight Bearing:full Assistive Devices:none Do you need a prescription renewal?no Martin Carrion MD [address] [place] [address],[address], [place], [address], [facility] 04/08/2016 21:12:00 07/06/2016 text/html Fracture/Post-Op Follow UpReported bypatient.Swelling :none Pain:none;mild Wound problems:no Numbness:none Weakness:none Tingling:none Weight Bearing:full Assistive Devices:none Do you need a prescription renewal?no Martin Carrion MD [address] [place] [address],[address], [place], [address], [facility] 07/08/2016 10:55:09 OBGyn Episode No OBEpisode recorded.
== END 2024-07-31 13:36 | disposition home or self-care (01) ==
PROVIDERS: PCP Nurse Practitioner; Visit Provider Internal Medicine
DX: I48.0 Paroxysmal atrial fibrillation (principal); R00.1 Bradycardia, unspecified; Z51.81 Encounter for therapeutic drug level monitoring; Z79.899 Other long term (current) drug therapy; I49.3 Ventricular premature depolarization; I10 Essential (primary) hypertension
CPT/HCPCS: 93010; 93280; 99214

== ENCOUNTER → 2024-07-31 12:55 | Outpatient (BNVA) | payer OTHER, SELFPAY | PROVIDERS: PCP Nurse Practitioner; Visit Provider Internal Medicine | DX: I48.0 Paroxysmal atrial fibrillation (principal); R00.1 Bradycardia, unspecified; I49.3 Ventricular premature depolarization; I10 Essential (primary) hypertension; Z79.899 Other long term (current) drug therapy; Z45.018 Encounter for adjustment and management of other part of cardiac pacemaker | CPT/HCPCS: 93005; 93280 ==

== ENCOUNTER → 2024-08-27 23:59 | Outpatient (BNV) | payer OTHER, SELFPAY ==
--- NOTE | 2024-09-04 10:56 | MHC.OFFVIS ---
Intake Visit Reasons: Remote device check- [employer] Allergies dofetilide [From TIKOSYN] Allergy (Unknown, Verified 10/04/23 15:21) IRREGULAR HEART RATE lisinopril [LISINOPRIL] Allergy (Unknown, Verified 10/04/23 15:21) SWELLING penicillin G Allergy (Unknown, Verified 10/04/23 15:21) RESPIRATORY DISTRESS penicillin V Allergy (Unknown, Verified 10/04/23 15:21) Unknown Penicillin Allergy (Unknown, Uncoded 10/04/23 15:21) Unknown Tikosyn Allergy (Unknown, Uncoded 10/04/23 15:21) Unknown [facility] Medical History (Updated 07/31/24 @ 16:19 by Cedric Bruce MD) Essential hypertension Paroxysmal atrial fibrillation Hypothyroidism Atrial fibrillation Surgical History Status post cardiac pacemaker procedure History of cardiac radiofrequency ablation Family History Father No problems noted. Mother No problems noted. 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 Overall normal device function. [id number] Cardiac Device Interrogation, pacemaker Procedure code (CPT) selection complete Assessment & Plan Assessment & Plan (1) Pacemaker: Code(s): Z95.0 - Presence of cardiac pacemaker Category: Medical (2) Sinus bradycardia: Code(s): R00.1 - Bradycardia, unspecified Category: Medical (3) Atrial fibrillation: Code(s): I48.91 - Unspecified atrial fibrillation Category: Medical Plan x Coding Level of Care Code Procedure Only Diagnoses Pacemaker Z95.0 Sinus bradycardia R00.1 Atrial fibrillation I48.91 CPT Codes Cardiac Device Check - Cardiac Device 12: [id number] Cardiac Device Interrogation, pacemaker ([id number])
== END ==
PROVIDERS: PCP Nurse Practitioner; Visit Provider Internal Medicine
DX: I48.91 Unspecified atrial fibrillation (principal); Z95.0 Presence of cardiac pacemaker
CPT/HCPCS: 93294

== ENCOUNTER 2024-09-07 15:32 | Outpatient (REF) | payer OTHER, SELFPAY ==
--- OUTSIDE RECORDS SUMMARY | 2024-09-07 16:33 | XMS_ITS | Data Portability ---
Author Organization ID - [facility], Main Office Address [address] [place] [address] [address] [place] [address] Care Team Providers Care Youth Court Judge Name Role Phone SAMUEL TATUM Primary Care Provider SAMUEL TATUM Referring Provider Assessment No assessment recorded. Plan of Treatment Reminders Order Date Submit Date Provider Last Modified By Organization Details Last Modified Time Details Appointments None recorded . Lab None recorded . Referral physical therapis t referral 2015 016 [email or web address] [id number] [facility], [address] [place] [address], [address], 6 04:04:22 Procedures None recorded . Surgeries None recorded . Imaging XR, hip, unilater al 2015 016 [facility] [address] [address], [place], [address], 6 09:13:27 XR, hip, unilater al 2015 016 [id number], [address], 6 04:04:23 XR, hip, unilater al 2015 016 [facility] (Radiology), [address] [place] [address], [address], 6 13:18:00 Medication Orders None recorded . Patient TargetsNo targets recorded. Patient Instructions Encounter Date Encounter Id Patient Instructions Last Modified By Organization Details Last Modified Time 01/08/2016 [id number] She is scheduled for upcoming left total hip replacement surgery. ? ? ?We have reviewed the surgical procedure, the postoperative recovery, and the rehabilitation timeline. ? ? ?We have discussed risks of surgery including infection, wound healing problems, stiffness, difficulties with rehabilitation, and the possibility of persistent pain. ? ? ?Specifically we have discussed risks related to infection and blood clot and the use of prophylactic antibiotics and DVT prophylaxis. ? ? ?She understands that while these interventions below her the potential for complication, it certainly does not eliminate them. ? ? ?She has signed a full informed consent in my presence. ? ? ?We will go ahead and set her up for the planned surgical procedure of a left anterior total hip replacement to be done this coming Wednesday elie Not available 01/09/2016 08:18:44 01/29/2016 [id number] Her hip looks great. ? ? ?She has some swelling but otherwise things look very good. ? ? ?Her x-ray shows a well aligned hip prosthesis. ? ? ?The cup is very slightly proud, but looks to be well engaged on the periphery. ? ? ?I think it looks completely stable and she is feeling fine. ? ? ?She will follow up with me in 4 weeks elie Not available 01/29/2016 13:51:00 02/26/2016 [id number] hip looks great. We will see her back next time with an xray elie Not available 02/26/2016 13:45:27 04/08/2016 [id number] She still has so me thigh pain, [...] long time elie Not available 04/08/2016 21:10:54 07/06/2016 [id number] She continues to have some generalized aching [...] pelvi s No observ ation record ed. [facility] (Radiology) [address] [place], [address], 12/24/2015 13:11:30 01/14/20 16 01/14/2016 CT, pelvi s No observ ation record ed. [facility] ([facility]) [address], [address], 01/15/2016 08:00:00 Result Notes None recorded. Problems Name Problem SNOMED Code Status Onset Date Resolution Date Notes Provider Name and Address Organization Details Recorded Time Localized, primary osteoarthritis of the pelvic region and thigh 889329110 Active Martin Carrion MD [address] [place] [address],[address], [place], [address], [facility] 6 13:50:59 Problem Notes None recorded. Procedures Surgical History Date Name Laterality Status Provider Name and Address Organization Details Recorded Time 07/06/20 16 Steroid Injection/Major Joint or Bursa completed Martin Carrion MD [address] [place] [address],[address], [place], [address], [facility] 07/08/2016 10:54:19 01/14/20 16 TOTAL HIP ARTHROPLASTY (SURG) completed Valarie Damon [facility] 01/15/2016 15:02:43 07/19/19 14 Other completed Valarie Damon [facility] 10/28/2015 10:33:33 Imaging Results Imaging Date Name Status LastModified by Organiz ation Details LastModified Time 12/23/2015 CT, pelvis completed [facility] (Radiology) [address] [place], [address], 12/24/2015 13:11:30 01/14/2016 CT, pelvis completed [facility] ([facility]) [address], [address], 01/15/2016 08:00:00 Procedure Notes None recorded. Medical Equipment None Reported. Allergies Allergen ID Allergen Name Allergen Category Reaction Reaction Severity Criticality Documentation Date Start Date Code Code System Note Provider Name and Address Organization Details Recorded Time 88878 Product containin g penicilli n (product) medicatio n Not available Not available Not available 10/23/2015 19182 8001 SNOMED Valentina zuniga [place] - [facility] 6 15:33:53 Medications Name Sig Start Date [...] Not Available Not Available Not Available Afluria [id number] (PF) 45 mcg(15 mcg x 3)/0.5 mL intramuscul ar syringe inject 0.5 millilite r intramusc ularly active Not Available Not Available No t Available Vitals None Recorded Social History Question Answer Notes LastModified by Organizat ion Details LastModified Time Tobacco Smoking Status Never Smoker Valentina Yates null, [place] - [facility] 10/23/2015 15:33:53 What Is Your Level Of [...] available 01/07 13:25:36 Medical History Condition Response Thyroid Problems Y Depression Y Anxiety Disorder Y Hypertension Y Gynecological HistoryNo gynecological history recorded. Obstetrics History GPAL:G 0 P 0 0 0 0 Past Encounters Encounter ID Performer Location Encounter Start Date Encounter Closed Date Diagnosis/Indication Diagnosis SNOMED-CT Code Diagnosis ICD10 Code Diagnosis Note [id number] Martin Carrion MD [address] [place] [address] 10/23/2015 14:21:07 10/31/2015 13:43:49 Localized, primary osteoarthritis of the pelvic region and thigh 212982838 M16.0 [id number] Martin Carrion MD [address] [place] [address] 01/08/2016 13:19:34 01/15/2016 16:18:54 Localized, primary osteoarthritis of the pelvic region and thigh 719178398 M19.91 [id number] Martin Carrion MD [address] [place] [address] 01/29/2016 13:29:18 01/31/2016 13:18:00 Localized, primary osteoarthritis of the pelvic region and thigh 066862005 M19.91 [id number] Martin Carrion MD [address] [place] [address] 02/26/2016 13:22:42 03/05/2016 09:22:27 Localized, primary osteoarthritis of the pelvic region and thigh 306061188 M19.91 [id number] Martin Carrion MD [address] [place] [address] 04/08/2016 16:32:32 04/17/2016 10:38:44 Localized, primary osteoarthritis of the pelvic region and thigh 110781052 M19.91 [id number] Martin Carrion MD Main Office [address] [place] [address] 07/06/2016 09:06:05 07/15/2016 09:13:27 Localized, primary osteoarthritis of the pelvic region and thigh 502192488 M19.91 Health Concerns Section Related Observation LastModified by Organization Detai ls LastModified Time None Recorded Concern Status LastModified by Organization Details LastModified Time None Recorded Advance Directives Directive None Recorded Payers Encounter Date Sequence Insurance Name Policy Number Policy Becrera Covered Member ID Becerra Member ID Guarantor Name 01/08/2016 1 [facility] [id number] Lupe Benjamin [id number] Lupe Benjamin 01/29/2016 1 [facility] [id number] Lupe Benjamin [id number] Lupe Benjamin 02/26/2016 1 [facility] [id number] Lupe Benjamin [id number] Lupe Benjamin 04/08/2016 1 [facility] [id number] Lupe Benjamin [id number] Lupe Benjamin 07/06/2016 1 [facility] [id number] Lupe Benjamin [id number] Lupe Benjamin Notes Date Note Type Note [...] Previous PT:did not help Martin Carrion MD [address] [place] [address],[address], [place], [address], [facility] 01/09/2016 08:18:53 01/29/2016 text/html Fracture/Post-Op Follow UpReported bypatient.Swelling :moderate Pain:none;mild Wound problems:no Numbness:none Weakness:none Tingling:none Weight Bearing:full Assistive Devices:none Do you need a prescription renewal?no Martin Carrion MD [address] [place] [address],[address], [place], [address], [facility] 01/29/2016 13:51:08 02/26/2016 text/html Fracture/Post-Op Follow UpReported bypatient.Swelling :none Pain:none;mild Wound problems:no Numbness:none Weakness:none Tingling:none Weight Bearing:full Assistive Devices:none Do you need a prescription renewal?no Martin Carrion MD [address] [place] [address],[address], [place], [address], [facility] 02/26/2016 13:45:39 04/08/2016 text/html Fracture/Post-Op Follow UpReported bypatient.Swelling :none Pain:none;mild Wound problems:no Numbness:none Weakness:none Tingling:none Weight Bearing:full Assistive Devices:none Do you need a prescription renewal?no Martin Carrion MD [address] [place] [address],[address], [place], [address], [facility] 04/08/2016 21:12:00 07/06/2016 text/html Fracture/Post-Op Follow UpReported bypatient.Swelling :none Pain:none;mild Wound problems:no Numbness:none Weakness:none Tingling:none Weight Bearing:full Assistive Devices:none Do you need a prescription renewal?no Martin Carrion MD [address] [place] [address],[address], [place], [id number], [facility] 07/08/2016 10:55:09 OBGyn Episode No OBEpisode recorded.
== END 2024-09-07 15:33 | disposition home or self-care (01) ==
LOC: HO.MAMMO 15:32
PROVIDERS: PCP Nurse Practitioner; Visit Provider Nurse Practitioner
DX: Z12.31 Encounter for screening mammogram for malignant neoplasm of breast (principal)
CPT/HCPCS: 77063; 77067

== ENCOUNTER → 2024-09-07 15:45 | Outpatient (BNV) | payer OTHER, SELFPAY | PROVIDERS: PCP Nurse Practitioner; Visit Provider Internal Medicine | DX: Z12.31 Encounter for screening mammogram for malignant neoplasm of breast (principal) | CPT/HCPCS: 77063; 77067 ==

== ENCOUNTER → 2024-11-25 23:59 | Outpatient (BNV) | payer OTHER, SELFPAY ==
--- NOTE | 2024-12-05 20:19 | MHC.OFFVIS ---
Intake Visit Reasons: Remote device check- [employer] Allergies dofetilide [From TIKOSYN] Allergy (Unknown, Verified 10/04/23 15:21) IRREGULAR HEART RATE lisinopril [LISINOPRIL] Allergy (Unknown, Verified 10/04/23 15:21) SWELLING penicillin G Allergy (Unknown, Verified 10/04/23 15:21) RESPIRATORY DISTRESS penicillin V Allergy (Unknown, Verified 10/04/23 15:21) Unknown Penicillin Allergy (Unknown, Uncoded 10/04/23 15:21) Unknown Tikosyn Allergy (Unknown, Uncoded 10/04/23 15:21) Unknown [facility] Medical History (Updated 07/31/24 @ 16:19 by Cedric Bruce MD) Essential hypertension Paroxysmal atrial fibrillation Hypothyroidism Atrial fibrillation Surgical History Status post cardiac pacemaker procedure History of cardiac radiofrequency ablation Family History Father No problems noted. Mother No problems noted. Social History Household Members: Significant Other Housing: House Do you presently have visiting nurse or other home services: No Alcohol intake: former Patient Tobacco Use Status: Never used Tobacco service: No Office Procedures Cardiac Device Check Cardiac Device Check Details: Date of service- 11/25/2024 ; Battery life >11 years; normal lead parameters; AP 93%; FIRST BREAKER FEEDER 15%; no significant arrhythmias. Overall normal device function. [id number] Cardiac Device Interrogation, pacemaker Procedure code (CPT) selection complete Assessment & Plan Assessment & Plan (1) Pacemaker: Code(s): Z95.0 - Presence of cardiac pacemaker Category: Medical (2) Paroxysmal atrial fibrillation: Code(s): I48.0 - Paroxysmal atrial fibrillation Category: Medical Plan x Coding Level of Care Code Procedure Only Diagnoses Pacemaker Z95.0 Paroxysmal atrial fibrillation I48.0 CPT Codes Cardiac Device Check - Cardiac Device 12: [id number] Cardiac Device Interrogation, pacemaker ([id number])
== END ==
PROVIDERS: PCP Nurse Practitioner; Visit Provider Internal Medicine
DX: I48.0 Paroxysmal atrial fibrillation (principal); Z95.0 Presence of cardiac pacemaker
CPT/HCPCS: 93294

== ENCOUNTER → 2025-02-26 23:59 | Outpatient (BNV) | payer OTHER, SELFPAY ==
--- NOTE | 2025-02-28 19:32 | MHC.OFFVIS ---
Intake Visit Reasons: Remote device check- [employer] Allergies dofetilide (From TIKOSYN) Allergy (Unknown, Verified 10/04/23 15:21) IRREGULAR HEART RATE lisinopril (LISINOPRIL) Allergy (Unknown, Verified 10/04/23 15:21) SWELLING penicillin G Allergy (Unknown, Verified 10/04/23 15:21) RESPIRATORY DISTRESS penicillin V Allergy (Unknown, Verified 10/04/23 15:21) Unknown Penicillin Allergy (Unknown, Uncoded 10/04/23 15:21) Unknown Tikosyn Allergy (Unknown, Uncoded 10/04/23 15:21) Unknown [facility] Medical History (Updated 07/31/24 @ 16:19 by Cedric Bruce MD) Essential hypertension Paroxysmal atrial fibrillation Hypothyroidism Atrial fibrillation Surgical History Status post cardiac pacemaker procedure History of cardiac radiofrequency ablation Family History Father No problems noted. Mother No problems noted. 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 Overall normal device function. [id number] Cardiac Device Interrogation, pacemaker Procedure code (CPT) selection complete Assessment & Plan Assessment & Plan (1) Pacemaker: Code(s): Z95.0 - Presence of cardiac pacemaker Category: Medical (2) Paroxysmal atrial fibrillation: Code(s): I48.0 - Paroxysmal atrial fibrillation Category: Medical Plan x Coding Level of Care Code Procedure Only Diagnoses Pacemaker Z95.0 Paroxysmal atrial fibrillation I48.0 CPT Codes Cardiac Device Check - Cardiac Device 12: [id number] Cardiac Device Interrogation, pacemaker ([id number])
== END ==
PROVIDERS: PCP Nurse Practitioner; Visit Provider Internal Medicine
DX: I48.0 Paroxysmal atrial fibrillation (principal); Z95.0 Presence of cardiac pacemaker
CPT/HCPCS: 93294

== ENCOUNTER 2025-03-08 14:27 | Outpatient (AMB) | payer OTHER, SELFPAY ==
--- OUTSIDE RECORDS SUMMARY | 2020-02-27 10:05 | XMS_ITS | Encounter Summary ---
Author Organization [facility] Address [address] [place] [address] [place] [id number] Phone Care Team Providers Care Leak Operator Paraffin Plant Name Role Phone Gregg Conteh MD Primary Care Provider Linette Plata MD Unavailable [phone] Linette Plata MD Unavailable [phone] Connie Sevilla DPM Unavailable Unavailable Encounter Details Date Type Department Care Team (Late st Contact Info) Description 02/27/2020 10:05 AM EDT Hospital Encounter [facility] [address] [place] [id number] Syl Pablo YARDAGE CONTROL OPERATOR FORMING [address] [place] [address] [email or web address] Social History Tobacco Use Types Packs/Day Years Used Date Smoking Tobacco: Never Smokeless Tobacco: Never Alcohol Use Standard Drinks/Week Comments Yes 1 (1 standard drink = 0.6 oz pur e alcohol) occasional wine Education Answer Date Recorded Are you interested in more education? Not on kev e 11/13/2022 Are you concerned about learning? Not on file 11/13/2022 No 11/13/2022 No 11/13/2022 Digital Access Answer Date Recorded No 12/12/2022 No 12/12/2022 Reliable internet access at home? Not on file 12/12/2022 Device with a working camera? Not on file Intimate Partner Violence Answer Date R ecorded Are you denied basic needs s uch as food, clothing, or medical care? No 08/22/2022 In the past 12 months have y ou been in a relationship with a person who hurts, threatens, or tries to control you? No 08/22/2022 Are you denied basic needs s uch as food, clothing, or medical care? No 08/22/2022 In the past 12 months have y ou been in a relationship with a person who hurts, threatens, or tries to control you? No 08/22/2022 Comments Unknown Sex and Gender Information Value Date Recorded Sex Assigned at Not on file Legal Sex Female 11:19 PM EDT Gender Identity Not on file Sexual Orientation Not on file documented as of this encounter Functional Status * Calculated C-SSRS Risk Score (Lifetime/Recent) Answer Date of Assessment Author No Risk Indicated 08/22/2022 12:44 PM Ene Pandya RN * Freedom Suicide Severity Rating Scale (Screener/Recent Self-Report) Question Answer Date of Assessment Author 1. Wish to be (Past 1 Month) No 023 12:44 PM Ene Pandya RN 2. Non-Specific Active Suici divya Thoughts (Past 1 Month) No 08/22/2022 12:44 PM Alma Rosa Pandya RN 6. Suicidal Behavior (Lifetime) No 12:44 PM Ene Pandya RN documented as of this encounter Plan of Treatment Not on file documented as of this encounter Procedures Procedure Name Priority Date/Time Associated Diagnosis Comments XR HAND 3 OR MORE VIEWS (RIGHT) Urgent/patient waiting 02/27/2020 10:12 AM EDT Fall on stairs, initial encounter documented in this encounter Results * XR HAND 3 OR MORE VIEWS (RIGHT) (02/27/2020 10:12 AM EDT) Anatomical Region Laterality Modality Hand Right Radiographic Magaly ging 02/27/2020 10:2 6 AM EDT Impressions 02/27/2020 10:28 AM EDT Dorsal dislocation at the level of the fifth PIP joint with a small articular margin chip fracture of the middle phalangeal base. POS - [id number] Narrative 02/27/2020 10:28 AM EDT COMPARISON: None FINDINGS: Frontal, lateral, and oblique views were obtained disclosing a dorsal dislocation of the fifth middle phalangeal base with minimal override of the phalanges with an equivocal tiny chip fracture seen along the dorsal margin of the middle phalangeal articular surface. No additional fracture. Remainder the visualized regional skeletal structures are intact. Procedure Note Luis Gill MD - 02/27/2020 COMPARISON: None FINDINGS: Frontal, lateral, and oblique views were obtained disclosing a dorsaldislocation of the fifth middle phalangeal base with minimal override ofthe phalanges with an equivocal tiny chip fracture seen along the dorsalmargin of the middle phalangeal articular surface. No additional fracture.Remainder the visualized regional skeletal structures are intact. IMPRESSION: Dorsal dislocation at the level of the fifth PIP joint with a smallarticular margin chip fracture of the middle phalangeal base. POS - [id number] Syl Pablo YARDAGE CONTROL OPERATOR FORMING IMG XR UPPER EXTREMITY Yenifer l Result documented in this encounter Visit Diagnoses Not on filedocumented in this encounter Care Teams Leak Operator Paraffin Plant Relationship Specialty Start Date End Date Gregg Conteh MD [email or web address] PCP - General Family Medicine 10/04/17 08/12/22 Linette Plata MD [email or web address] 10/04/17 Linette Plata MD [address] [place] [address] [email or web address] Historical LMR Provider 05/06/17 07/26/21 Connie Sevilla DPM [address] [place] [address] Historical LMR Provider 05/06/1707/26/21 documented as of this encounter Additional Source Comments The information contained in this document represents components of the legal health record. It is not the complete legal health record.[facility]
--- OUTSIDE RECORDS SUMMARY | 2025-03-08 14:36 | XMS_ITS | Patient Health Record ---
Author Organization [facility] Address [address] [place] [address] Care Team Providers Care Rumper Name Role Phone Gregg Conteh MD Primary Care Provider Yomaira Schneider Unavailable [phone] Allergies Allergen (clinical drug ingredient) Drug/Non Drug Allergy documented on EMR Reaction Allergy Type Onset Date Status dofetilide Tikosyn Unknown Drug Allergy Active Penicillin Rash Drug Allergy Active Reason For Referral No Information Medications Medication SIG (Take, Route, Frequency, Duration) Notes Start Date End Date Status LamISIL 250 MG 1 tablet Orally Once a day; Duration: 30 days 06/21/2015 Active Melatonin Active LFT . . . .; Duration: . 06/21/2015 Active Citracal + D Active amLODIPine Besylate Active Levothyroxine Sodium Active Metoprolol & Diet Manage Prod 25 mg Orally Active Problems No Known Problems Plan Of Treatment No Information Insurance Providers Payer Name Payer Address Payer Phone Subscriber Number Group Number Insured Name Patient Relationship to Insured Coverage Start Date Coverage End Date [facility] [address] [facility] [id number] [phone] [id number] Lupe Benjamin Self - patient is the insured Medical (General) History Medical History History ICD Code Arthritis hip pain High blood pressure Raynauds syndrome Thyroid disorder Measles Chicken pox 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
--- OUTSIDE RECORDS SUMMARY | 2025-03-08 14:36 | XMS_ITS | Patient Health Record ---
Author Organization [facility] Address [address] [place] [address] Care Team Providers Care Senior Security Engineer Name Role Phone Landon Tello Unavailable [phone] Reason For Referral No Information Plan Of Treatment No Information
[2025-03-08 14:54] VITALS: BP 108/60; PULSE 89; BMI 22.4
--- NOTE | 2025-03-08 14:54 | A.OFFVIS_ITS ---
Vital Signs 03/08/25 14:54 Height 5 ft 5 in Weight 134 lb 7.712 oz BMI 22.4 BP 108/60 Blood Pressure Location Lt brachial Position Sitting Pulse 89 Pulse Source Monitor Intake Visit Reasons: follow up Allergies dofetilide (From TIKOSYN) Allergy (Unknown, Verified 10/04/23 15:21) IRREGULAR HEART RATE lisinopril (LISINOPRIL) Allergy (Unknown, Verified 10/04/23 15:21) SWELLING penicillin G Allergy (Unknown, Verified 10/04/23 15:21) RESPIRATORY DISTRESS penicillin V Allergy (Unknown, Verified 10/04/23 15:21) Unknown Penicillin Allergy (Unknown, Uncoded 10/04/23 15:21) Unknown Tikosyn Allergy (Unknown, Uncoded 10/04/23 15:21) Unknown Medication List - Last Reconciled 03/08/25 by Cedric Bruce MD alendronate 70 mg PO WE amlodipine 2.5 mg PO ONCE 90 days apixaban (Eliquis) 5 mg PO BID carvedilol 6.25 mg PO BID 90 days doxepin 10 mg PO BEDTIME flecainide 50 mg PO BID 30 days gabapentin 300 mg PO BEDTIME hydrochlorothiazide 25 mg PO DAILY levothyroxine 125 mcg PO DAILY@0600 spironolactone 25 mg PO DAILY HPI Comments Details: Lupe returns for follow-up. History of paroxysmal atrial fibrillation and previously seen at [facility]. She has a history of 3 atrial fibrillation ablations, around 10 years ago. She was free of atrial fibrillation for many years but then started having episodes of palpitations from recurrent atrial fibrillation. Currently, she is on combination of carvedilol as well as flecainide. She was also having significant bradycardia and because of this he was sent for EP consultation. Underwent pacemaker placement. After that, she states she is actually much better and overall feels quite good. Since last seen, she is doing good. No new concerns. She really does not feel any palpitations or any other cardiac symptoms. [facility] Medical History (Updated 07/31/24 @ 16:19 by Cedric Bruce MD) Essential hypertension Paroxysmal atrial fibrillation Hypothyroidism Atrial fibrillation Surgical History Status post cardiac pacemaker procedure History of cardiac radiofrequency ablation Family History Father No problems noted. Mother No problems noted. Social History Household Members: Significant Other Housing: House Do you presently have visiting nurse or other home services: No Alcohol intake: former Patient Tobacco Use Status: Never used Tobacco service: No Review of Systems Const Denies weakness ENT Denies dizziness Card Denies chest pain, Denies chest pain with activity, Denies syncope, Denies rapid heart rate, Denies pedal edema, Denies edema, Denies leg edema, Denies lightheadedness, Denies palpitations, Denies dyspnea, Denies dyspnea on exertion and Denies orthopnea Resp Denies cough, Denies dyspnea and Denies dyspnea on exertion GI Denies hematochezia and Denies change in stool character Musc Denies abnormal gait, Denies muscle cramps, Denies muscle weakness, Denies numbness, Denies radiating pain into limb and Denies tingling Neuro Denies abnormal gait, Denies dizziness, Denies syncope, Denies numbness, Denies tingling and Denies weakness Endo Denies palpitations Physical Exam Vital Signs: Last Vital Signs Pulse 89 03/08/25 14:54 BP 108/60 03/08/25 14:54 BMI result Body Mass Index 22.4 Const General: comfortable and no acute distress Orientation/consciousness: patient oriented x3 HEENT Other: Unremarkable Head: Yes normal to inspection Neck Neck: Yes normal visual inspection Chest Chest palpation & inspection: normal inspection of the chest Resp Auscultation: clear to auscultation bilaterally Cardio Palpation: normal PMI Heart sounds: S1 normal heart sound present, S2 normal heart sound present, no gallops, no murmurs and no rubs GI Palpation (GI): Soft to palpation Back/Spine/Pelvis Other: unremarkable Skin General skin exam: no rashes or lesions noted Neuro General: patient oriented x3 Extrem General: Yes normal to inspection Psych Mental Status: mental status grossly normal Office Procedures EKG Details: EKG with AV dual-chamber paced rhythm at 89/Min. 85377-Ieffhfuhbsetswkmq, Complete Assessment & Plan Assessment & Plan (1) Paroxysmal atrial fibrillation: Code(s): I48.0 - Paroxysmal atrial fibrillation Category: Medical (2) Sinus bradycardia: Code(s): R00.1 - Bradycardia, unspecified Category: Medical (3) Encounter for monitoring anti-arrhythmic therapy: Code(s): Z51.81 - Encounter for therapeutic drug level monitoring; Z79.899 - Other half-way (current) drug therapy Category: Medical (4) Essential hypertension: Code(s): I10 - Essential (primary) hypertension Category: Medical Plan Cardiac studies reviewed. Echocardiogram from 2022 with LVEF of 65-70%, no wall motion abnormality, [id number] aortic regurgitation. Left atrial size reported to be normal. Myocardial perfusion imaging study from 2021 -10.1 METS workload and no EKG evidence of ischemia. Probably normal perfusion component. Overall, she is stable on the current regimen of carvedilol/flecainide. Continue that. Continue anticoagulation. She has not had any recurrent atrial fibrillation on the current combination of carvedilol/flecainide. May continue that. Continue anticoagulation without changes. With regard to blood pressure, on a combination of amlodipine, carvedilol, hydrochlorothiazide, spironolactone. Stable. Last available Cr 0.8, K 4.3. Follow-up in 6 months. Coding Level of Care Code Est Pt Level 4 (62833) Complex EM visit Add On G2211 Diagnoses Paroxysmal atrial fibrillation I48.0 Sinus bradycardia R00.1 Encounter for monitoring anti-arrhythmic therapy Z51.81; Z79.899 Essential hypertension I10 CPT Codes EKG - CPT: 33988-Nosqdohtdcvhsyolr, Complete ([id number])
== END 2025-03-08 15:11 | disposition home or self-care (01) ==
LOC: HO.HCS 14:28
PROVIDERS: PCP Nurse Practitioner; Visit Provider Internal Medicine
DX: I48.0 Paroxysmal atrial fibrillation (principal); R00.1 Bradycardia, unspecified; Z51.81 Encounter for therapeutic drug level monitoring; Z79.899 Other long term (current) drug therapy; I10 Essential (primary) hypertension
CPT/HCPCS: 93010; 99214

== ENCOUNTER → 2025-03-08 14:27 | Outpatient (BNVA) | payer OTHER, SELFPAY | PROVIDERS: PCP Nurse Practitioner; Visit Provider Internal Medicine | DX: I10 Essential (primary) hypertension (principal) | CPT/HCPCS: 93005 ==